=== PATIENT | male | born 1980 | race African-American/Black ===

== ENCOUNTER 2021-04-16 16:05 | Inpatient (IN) ==
[2021-04-16] MEDS ORDERED: NS 1000 ML 1,000 ML IV ONE (16:12)
[2021-04-16 16:15] VITALS: BMI 16.6
[2021-04-16] MEDS ORDERED: NS 1000 ML 1,000 ML ONE ×2 (16:19→17:54)
[2021-04-16 16:32] LABS: BASOPHILS # (AUTO) 0.1 X10^3/uL (0.0-0.1); BASOPHILS % (AUTO) 1.2 % (0.2-1.0); EOSINOPHILS # (AUTO) 0.2 x10^3/uL (0.0-0.2); EOSINOPHILS % (AUTO) 3.5 % (0.9-2.9); HEMOGLOBIN 8.9 g/dL (13.5-18.0); MEAN CORPUSCULAR HEMOGLOBIN 27.2 pg (27.0-34.0); MEAN CORPUSCULAR HGB CONC 33.1 g/dL (33.0-35.0); MEAN PLATELET VOLUME 7.3 fL (7.4-11.0); MONOCYTES # (AUTO) 0.2 x10^3/uL (0.3-0.8); MONOCYTES % (AUTO) 3.7 % (0.0-13.0); NEUTROPHILS # (AUTO) 2.7 x10^3/uL (2.2-4.8); NEUTROPHILS % (AUTO) 52.6 % (42.0-75.0); PLATELET COUNT 302 X10^3/uL (150.0-450.0); RED BLOOD COUNT 3.29 X10^6/uL (4.7-6.0); RED CELL DISTRIBUTION WIDTH 16.8 % (11.6-16.5)
--- NOTE | 2021-04-16 16:33 | RAD ---
HISTORYc/o passing out and abdominal pain. He states the abd pain is chronic. Pt states he has not had much to eat in the past 4 days due to pain from gastric ulcers. Relevant Clinical InformationSTUDYCHEST, 1 VIEWCOMPARISONNoneFINDINGSThe trachea is midline. The cardiac silhouette is unremarkable. The lungs are clear without focal infiltrate or effusion. The bony thorax is unremarkable.IMPRESSIONNo acute cardiopulmonary disease.Electronically signed by: Neha Barrera (Apr 16, 2021 16:31:01)
--- NOTE | 2021-04-16 16:42 | DR.GENAD ---
HPI Time Seen Time Seen by Provider: 04/16/21 16:30 Complaint/Symptoms Chief Complaint Doctors Comments: 40 y/o male, feeling bad for awhile. Has a h/o gastric ulcers, being followed by GI. Pt has been having upper abdominal pain, sharp, epigastric, fairly constant, does not radiate. Nothing makes it better, nothing makes it worse. Has had decreased PO intake x 4 days. Pt tried to walk to relative's house, became lightheaded and passed out. Denies any injury from falling. Has a headache. Denies neck pain, chest pain, dyspnea. Having pain with moving bowels, decreased stooling. Has not noticed the color of his stool. Source History Provided: Patient Mode of Arrival Mode of Arrival: EMS PMH PMH Past Medical History: Yes Past Medical History: PUD Past Surgical History: Yes Surgical History: Ortho Surgery Family History Family Medical History: Hypertension Social History Do you use any recreational Drugs:: No ROS Review of Systems Constitutional: Malaise, Weakness and Fatigue Eyes: No Symptoms Reported ENTM: No Symptoms Reported Respiratoy: No Symptoms Reported Cardiovascular: No Symptoms Reported Gastrointestinal/Abdominal: Abdominal Pain and Vomiting Genitourinary: No Symptoms Reported Neurological: Headache and Weakness Musculoskeletal: No Symptoms Reported Integumentary: No Symptoms Reported Hematologic/Lymphatic: No Symptoms Reported Endocrine: No Symptoms Reported Psychiatric: No Symptoms Reported All Other Systems: Reviewed and Negative PE Vital Signs Vitals: Temperature 98.4 F Pulse Rate 108 Respiratory Rate 18 Blood Pressure 100/78 O2 Sat by Pulse Oximetry 100 General Limitations: No Limitations General Appearance: Alert and In No Apparent Distress Head Head Exam: Normal Inspection, Atraumatic and Normocephalic Eyes Eye exam: Normal Appearance and PERRL ENT ENT Exam: Normal Exam and Mucous Membranes Moist Nose Exam: Normal Nose Exam Neck Neck Exam: Normal Inspection and Full ROM Chest Chest Inspection: Normal Inspection Respiratory Respiratory Exam: Normal Lung Sounds Bilat; negative Accessory Muscle Use and Respiratory Distress Respiratory Exam: Bilateral: Clear to Auscultation Cardiovascular Cardiovascular Exam: Regular Rate, Normal Rhythm, Tachycardia and Normal Heart Sounds Abdominal Exam Abdominal Exam: Normal Inspection, Normal Bowel Sounds, Soft and Tenderness (epigastric region) Extremities Extremities Exam: Normal Inspection and Full ROM; negative Tenderness and Edema Back Back Exam: Normal Inspection and Full ROM; negative Tenderness Neurologic Neurological Exam: Alert, Oriented X3 and CN II-XII Intact; negative Motor Sensory Deficit Psychiatric Psychiatric Exam: Normal Affect Skin Skin Exam: Warm and Dry MDM Differential Diagnosis Differential Diagnosis: gastritis, PUD, dehydration, renal injury, rhabdomyolisis COURSE Treatment Treatment: Pt with decreased PO intake x 4 days, had syncopal event while walking. Appears dehydrated, P up BP low. W/u initiated. Given IV fluids. Pt doing better, P & BP improving. Additional IV fluids given. Pt wants to try to eat. Will give IV protonix. Hgb 8.9, will send stool for blood. Deserves admission for more fluids. Discussed with Dr. Leonard, covering hospitalist, will admit. ROR Labs Reviewed Laboratory Results Reviewed?: Yes Result Diagrams: 04/16/21 16:18 04/16/21 16:18 Laboratory: WBC 5.0 X10^3/uL (3.6-10.0) 04/16/21 16:18 RBC 3.29 X10^6/uL (4.7-6.0) L 04/16/21 16:18 Hgb 8.9 g/dL (13.5-18.0) L 04/16/21 16:18 Hct 27.0 % (42.0-54.0) L 04/16/21 16:18 MCV 82.0 fL (80.0-100.0) 04/16/21 16:18 MCH 27.2 pg (27.0-34.0) 04/16/21 16:18 MCHC 33.1 g/dL (33.0-35.0) 04/16/21 16:18 RDW 16.8 % (11.6-16.5) H 04/16/21 16:18 Plt Count 302 X10^3/uL (150.0-450.0) 04/16/21 16:18 MPV 7.3 fL (7.4-11.0) L 04/16/21 16:18 Neut % (Auto) 52.6 % (42.0-75.0) 04/16/21 16:18 Lymph % (Auto) 39.0 % (21.0-51.0) 04/16/21 16:18 [place] % (Auto) 3.7 % (0.0-13.0) 04/16/21 16:18 Eos % (Auto) 3.5 % (0.9-2.9) H 04/16/21 16:18 Baso % (Auto) 1.2 % (0.2-1.0) H 04/16/21 16:18 Neut # (Auto) 2.7 x10^3/uL (2.2-4.8) 04/16/21 16:18 Lymph # (Auto) 2.0 X10^3/uL (1.3-2.9) 04/16/21 16:18 [place] # (Auto) 0.2 x10^3/uL (0.3-0.8) L 04/16/21 16:18 Eos # (Auto) 0.2 x10^3/uL (0.0-0.2) 04/16/21 16:18 Baso # (Auto) 0.1 X10^3/uL (0.0-0.1) 04/16/21 16:18 Absolute Nucleated RBC 0.0 /100WBC 04/16/21 16:18 Sodium 140 mmol/L (136-145) 04/16/21 16:18 Corrected Sodium 142 mmol/L (136-145) 04/16/21 16:18 Potassium 4.3 mmol/L (3.5-5.1) 04/16/21 16:18 Chloride 104 mmol/L (98-107) 04/16/21 16:18 Carbon Dioxide 25.5 mmol/L (21-32) 04/16/21 16:18 BUN 12 mg/dL (7-18) 04/16/21 16:18 Creatinine 0.85 mg/dL (0.70-1.30) 04/16/21 16:18 Est GFR (MDRD) Af Amer > 60 (>60) 04/16/21 16:18 Est GFR (MDRD) Non-Af > 60 (>60) 04/16/21 16:18 Glucose 169 mg/dL (65-99) H 04/16/21 16:18 Calcium 8.0 mg/dL (8.5-10.1) L 04/16/21 16:18 Corrected Calcium 8.8 mg/dL (8.5-10.1) 04/16/21 16:18 Total Bilirubin 0.20 mg/dL (0.2-1.0) 04/16/21 16:18 AST 14 Units/L (15-37) L 04/16/21 16:18 ALT 19 Units/L (12-78) 04/16/21 16:18 Alkaline Phosphatase 78 Units/L (46-116) 04/16/21 16:18 Creatine Kinase 99 Units/L (39-308) 04/16/21 16:18 CK-MB (CK-2) < 1.0 ng/mL (0-4.0) 04/16/21 16:18 CK/CKMB % Calc 1.0 % (<4) 04/16/21 16:18 Troponin I 0.02 ng/mL (0-1.5) 04/16/21 16:18 Total Protein 5.7 g/dL (6.4-8.2) L 04/16/21 16:18 Albumin 3.0 g/dL (3.4-5.0) L 04/16/21 16:18 Globulin 2.7 g/dL (2.5-4.5) 04/16/21 16:18 Albumin/Globulin Ratio 1.1 Ratio (1.1-2.1) 04/16/21 16:18 Lipase 75 Units/L (73-393) 04/16/21 16:18 SARS-CoV-2 (PCR) Negative (NEGATIVE) 04/16/21 16:14 Influenza Type A (PCR) Negative (NEGATIVE) 04/16/21 16:14 Influenza Type B (PCR) Negative (NEGATIVE) 04/16/21 16:14 RSV (PCR) Negative (NEGATIVE) 04/16/21 16:14 XRAY XRAY Interpreted by: Radiologist X-ray Results: CXR - clear. CT head - no acute abnormalities. Opioid Opioid Risk Tool Age (Jhony box if 16-45): Yes History of Preadolescent Sexual Abuse: No Total: 1 Total Score Risk Category: Low Risk Copyright: Damon VINCENT predicting aberrant behaviors Diagnosis Discharge Problem: Volume depletion, Peptic ulcer disease Syncope Qualifiers: Encounter type: initial encounter
--- NOTE | 2021-04-16 17:07 | CT ---
EXAM: HEAD CT WITHOUT INTRAVENOUS CONTRASTHISTORY: Headache status post traumatic injury. Syncope.TECHNIQUE: Spiral axial CT images are obtained through the brain without the administration of intravenous contrast. Additional sagittal and coronal reformatted images are reconstructed.DOSIMETRY: Total DLP 1121.5 mGycm; CTDI 67.4 mGyCOMPARISON: None available.FINDINGS:The centrum semiovale, basal ganglia, cerebellum, and brainstem are grossly unremarkable for a noncontrast CT scan.There is no acute intracranial hemorrhage, discernible acute infarction, mass lesion, midline shift, or hydrocephalus seen. No extra-axial mass or abnormal fluid collection is seen.There is a small left posterior parietal/occipital scalp hemorrhagic contusion/hematoma. The calvarium is intact. The partially imaged paranasal sinuses, middle ear cavities, and mastoid air cells are clear.IMPRESSION:1. No skull fracture or acute intracranial hemorrhage seen.2. No discernible acute infarction, mass lesions, midline shift, mass effect or hydrocephalus seen.Electronically signed by: Rebekah Burkett (Apr 16, 2021 17:04:16)
[2021-04-16 17:11] LABS: ALANINE AMINOTRANSFERASE 19 Units/L (12-78); ALKALINE PHOSPHATASE 78 Units/L (46-116); ASPARTATE AMINO TRANSFERASE 14 Units/L (15-37); BLOOD UREA NITROGEN 12 mg/dL (7-18); CARBON DIOXIDE 25.5 mmol/L (21-32); CHLORIDE 104 mmol/L (98-107); COR CA(FOR HYPOALB) 8.8 mg/dL (8.5-10.1); COR NA(FOR HYPERGLY) 142 mmol/L (136-145); CREATINE KINASE 99 Units/L (39-308); CREATINE KINASE MB < 1.0 ng/mL (0-4.0); CREATININE 0.85 mg/dL (0.70-1.30); LIPASE 75 Units/L (73-393); SODIUM 140 mmol/L (136-145); TOTAL PROTEIN 5.7 g/dL (6.4-8.2); TROPONIN I 0.02 ng/mL (0-1.5); eGFR NON BLACK RACES > 60 (>60)
[2021-04-16] MEDS ORDERED: PROTONIX INJ 40 MG VIAL IVP ONE (18:36)
[2021-04-16] MEDS ORDERED: PROTONIX INJ 40 MG VIAL ONE (18:49)
[2021-04-16 19:15] LABS: BILIRUBIN,URINE NEGATIVE (NEGATIVE); BLOOD/HEMOGLOBIN,URINE NEGATIVE (NEGATIVE); GLUCOSE, URINE NEGATIVE (NEGATIVE); KETONES,URINE NEGATIVE (NEGATIVE); LEUKOCYTE ESTERASE ,URINE NEGATIVE (NEGATIVE); NITRITES,URINE NEGATIVE (NEGATIVE); PROTEIN,URINE 1+ (NEGATIVE); UROBILINOGEN,URINE NORMAL (NORMAL)
[2021-04-16] MEDS ORDERED: LEVSIN/MAALOX/LIDOC VISC PO ONE (19:32)
[2021-04-16] MEDS ORDERED: LEVSIN/MAALOX/LIDOC VISC ONE (19:35)
[2021-04-16 19:47] LABS: APPEARANCE,URINE CLOUDY (CLEAR); COLOR,URINE YELLOW (YELLOW); RBC,URINE NONE SEEN /HPF (0-3)
[2021-04-16 19:48] LABS: AMORPHOUS SEDIMENT,UR 3+ /HPF (NEGATIVE); BACTERIA,URINE NEGATIVE /HPF (NEGATIVE); SQUAMOUS EPITHELIAL CELL,UR RARE /HPF (NEGATIVE)
[2021-04-17] MEDS: NS 1000 ML 1,000 ML IV SCH ×5 (00:09→21:30)
[2021-04-17] MEDS: CARAFATE ORAL SUSP PO SCH ×5 (00:09→21:29)
[2021-04-17 05:07] LABS: BASOPHILS % (AUTO) 0.7 % (0.2-1.0); EOSINOPHILS # (AUTO) 0.1 x10^3/uL (0.0-0.2); EOSINOPHILS % (AUTO) 1.7 % (0.9-2.9); HEMATOCRIT 20.3 % (42.0-54.0); LYMPHOCYTES # (AUTO) 1.7 X10^3/uL (1.3-2.9); LYMPHOCYTES % (AUTO) 26.6 % (21.0-51.0); MEAN CORPUSCULAR HEMOGLOBIN 27.3 pg (27.0-34.0); MEAN CORPUSCULAR HGB CONC 33.4 g/dL (33.0-35.0); MEAN CORPUSCULAR VOLUME 81.8 fL (80.0-100.0); MEAN PLATELET VOLUME 7.7 fL (7.4-11.0); MONOCYTES # (AUTO) 0.4 x10^3/uL (0.3-0.8); NEUTROPHILS # (AUTO) 4.1 x10^3/uL (2.2-4.8); PLATELET COUNT 238 X10^3/uL (150.0-450.0); RED BLOOD COUNT 2.48 X10^6/uL (4.7-6.0); RED CELL DISTRIBUTION WIDTH 17.1 % (11.6-16.5); WHITE BLOOD COUNT 6.3 X10^3/uL (3.6-10.0)
[2021-04-17 05:18] LABS: ALANINE AMINOTRANSFERASE 17 Units/L (12-78); ALBUMIN 2.9 g/dL (3.4-5.0); ALKALINE PHOSPHATASE 68 Units/L (46-116); ASPARTATE AMINO TRANSFERASE 12 Units/L (15-37); BLOOD UREA NITROGEN 16 mg/dL (7-18); CALCIUM 7.6 mg/dL (8.5-10.1); CARBON DIOXIDE 28.4 mmol/L (21-32); CHLORIDE 105 mmol/L (98-107); COR CA(FOR HYPOALB) 8.5 mg/dL (8.5-10.1); CREATININE 0.61 mg/dL (0.70-1.30); SODIUM 137 mmol/L (136-145); TOTAL PROTEIN 5.8 g/dL (6.4-8.2); eGFR NON BLACK RACES > 60 (>60)
[2021-04-17 05:33] LABS: HEMOGLOBIN 6.8 g/dL (13.5-18.0)
[2021-04-17] MEDS ORDERED: NS 500 ML IV 500 ML IV ONE (05:51)
[2021-04-17] MEDS: MILK OF MAGNESIA PO SCH ×2 (08:23→21:31)
[2021-04-17] MEDS: PROTONIX INJ 40 MG VIAL IVP SCH ×2 (08:50→21:30)
[2021-04-17] MEDS ORDERED: PROTONIX INJ 40 MG VIAL IVP SCH (09:00)
--- NOTE | 2021-04-17 09:17 | RAD ---
HISTORYABD PAIN, CONSTIPATIONSTUDYKUBCOMPARISONCT 12/25/2020FINDINGSIncreased small and large bowel air is seen and there is moderate right-sided constipation. No fecal impaction is seen. No suspicious calcifications are seen.IMPRESSIONModerate right-sided constipation. Increased small bowel and large bowel air may be due to mild ileus.Electronically signed by: Benedicto Mccollum (Apr 17, 2021 09:15:10)
[2021-04-17] MEDS: LEVSIN/MAALOX/LIDOC VISC PO PRN (10:48)
--- NOTE | 2021-04-17 11:25 | DR.H&P ---
H&P History & Physical for Day of: H&P Date: 04/17/21 Chief Complaint Chief Complaint: abdominal pain, poor oral intake, syncope Allergies Allergies Allergy/AdvReac Type Severity Reaction Status Date / Time No Known Drug Allergies Allergy Verified 11/20/20 11:47 History of Present Illness History of Present Illness: Mr Stein is a 40y/o male with a PMH of PUD, ga stritis and esophagitis who presented with worsening abdominal pain, vomiting and decreased oral intake. He also had a syncopal episode while he was at a family member's house. He states he has not been eating much for the past few days. He reports epigastric abdominal pain. He sees Dr Tee, saw him this Tuesday and is scheduled for a procedure next month. Patient reports taking PPI twice a day. He denies NSAID use or goody powder. Denies ETOH use. He denies noticing blood in stool. Denies diarrhea. He did have one episode of vomiting and it appeared to be coffee ground emesis. He feels better now. He was supposed to be NPO but tray was brought in prior to that order and patient did eat this morning. He states it worsened his pain slightly. He appears to be comfortable with no distress. He has not had a BM yet. He denies prev hx of blood transfusions. ER work up - Labs: Hgb 8.9 now 6.8 WBC 6.3 Plt 238 BUN/Cr: 16/0.6 Glucose 92 Trop (-) - CXR: no acute process - CT-head: normal Patient was started on IV fluids, IV pantoprazole and received GI cocktail. His Hgb did drop to 6.8 this AM. Denies hx of CAD. Last EGD 10/2020: duodenal bulb ulcer noted with mild gastritis and esophagitis. Plan: transfuse 2 units PRBCs, continue IV hydration. Change IV protonix to 40 mg BID. Add GI cocktail and carafate. Will switch to clear liquids. FOBT ordered. Get KUB. Monitor H/H after transfusion. Monitor AM labs. Past Medical History Past Medical History: Anemia and PUD Past Surgical History Surgical History: Ortho Surgery Family History Family Medical History: Hypertension Social History Does patient currently use any type of tobacco product: Yes Have you used tobacco products in the last 12 months: Yes Type of Tobacco Use: Cigarettes How many years tobacco product used: 10 Does any household member use tobacco: No Alcohol Use: None Drug Use: None Prescription drug monitoring program results: PDMP reviewed and no concerns identified Medications Home Medications: No Known Drug Allergies Allergy (Verified 11/20/20 11:47) CONTINUE taking the following medications lidocaine HCl [Lidocaine Viscous] 7.5 ml PO TID 04/16/21 [History] metoclopramide HCl 10 mg PO AC 04/16/21 [History] pantoprazole 40 mg PO DAILY 04/16/21 [History] sucralfate 10 ml PO QID 04/16/21 [History] Labs Result Diagrams: 04/17/21 03:55 04/17/21 03:55 Labs: Laboratory WBC 6.3 X10^3/uL (3.6-10.0) 04/17/21 03:55 RBC 2.48 X10^6/uL (4.7-6.0) L 04/17/21 03:55 Hgb 6.8 g/dL (13.5-18.0) L* D 04/17/21 03:55 Hct 20.3 % (42.0-54.0) L 04/17/21 03:55 MCV 81.8 fL (80.0-100.0) 04/17/21 03:55 MCH 27.3 pg (27.0-34.0) 04/17/21 03:55 MCHC 33.4 g/dL (33.0-35.0) 04/17/21 03:55 RDW 17.1 % (11.6-16.5) H 04/17/21 03:55 Plt Count 238 X10^3/uL (150.0-450.0) 04/17/21 03:55 MPV 7.7 fL (7.4-11.0) 04/17/21 03:55 Neut % (Auto) 65.0 % (42.0-75.0) 04/17/21 03:55 Lymph % (Auto) 26.6 % (21.0-51.0) 04/17/21 03:55 [place] % (Auto) 6.0 % (0.0-13.0) 04/17/21 03:55 Eos % (Auto) 1.7 % (0.9-2.9) 04/17/21 03:55 Baso % (Auto) 0.7 % (0.2-1.0) 04/17/21 03:55 Neut # (Auto) 4.1 x10^3/uL (2.2-4.8) 04/17/21 03:55 Lymph # (Auto) 1.7 X10^3/uL (1.3-2.9) 04/17/21 03:55 [place] # (Auto) 0.4 x10^3/uL (0.3-0.8) 04/17/21 03:55 Eos # (Auto) 0.1 x10^3/uL (0.0-0.2) 04/17/21 03:55 Baso # (Auto) 0.0 X10^3/uL (0.0-0.1) 04/17/21 03:55 Absolute Nucleated RBC 0.0 /100WBC 04/17/21 03:55 Sodium 137 mmol/L (136-145) 04/17/21 03:55 Corrected Sodium TNP 04/17/21 03:55 Potassium 4.6 mmol/L (3.5-5.1) 04/17/21 03:55 Chloride 105 mmol/L (98-107) 04/17/21 03:55 Carbon Dioxide 28.4 mmol/L (21-32) 04/17/21 03:55 BUN 16 mg/dL (7-18) 04/17/21 03:55 Creatinine 0.61 mg/dL (0.70-1.30) L 04/17/21 03:55 Est GFR (MDRD) Af Amer > 60 (>60) 04/17/21 03:55 Est GFR (MDRD) Non-Af > 60 (>60) 04/17/21 03:55 Glucose 92 mg/dL (65-99) 04/17/21 03:55 Calcium 7.6 mg/dL (8.5-10.1) L 04/17/21 03:55 Corrected Calcium 8.5 mg/dL (8.5-10.1) 04/17/21 03:55 Total Bilirubin 0.10 mg/dL (0.2-1.0) L 04/17/21 03:55 AST 12 Units/L (15-37) L 04/17/21 03:55 ALT 17 Units/L (12-78) 04/17/21 03:55 Alkaline Phosphatase 68 Units/L (46-116) 04/17/21 03:55 Creatine Kinase 99 Units/L (39-308) 04/16/21 16:18 CK-MB (CK-2) < 1.0 ng/mL (0-4.0) 04/16/21 16:18 CK/CKMB % Calc 1.0 % (<4) 04/16/21 16:18 Troponin I 0.02 ng/mL (0-1.5) 04/16/21 16:18 Total Protein 5.8 g/dL (6.4-8.2) L 04/17/21 03:55 Albumin 2.9 g/dL (3.4-5.0) L 04/17/21 03:55 Globulin 2.9 g/dL (2.5-4.5) 04/17/21 03:55 Albumin/Globulin Ratio 1.0 Ratio (1.1-2.1) L 04/17/21 03:55 Lipase 75 Units/L (73-393) 04/16/21 16:18 Specimen Type Clean catch urine 04/16/21 18:50 Urine Color Yellow (YELLOW) 04/16/21 18:50 Urine Appearance Cloudy (CLEAR) 04/16/21 18:50 Urine pH 7.0 (5.0 - 8.0) 04/16/21 18:50 Ur Specific [place] 1.015 (1.000-1.030) 04/16/21 18:50 Urine Protein 1+ (NEGATIVE) 04/16/21 18:50 Urine Glucose (UA) Negative (NEGATIVE) 04/16/21 18:50 Urine Ketones Negative (NEGATIVE) 04/16/21 18:50 Urine Occult Blood Negative (NEGATIVE) 04/16/21 18:50 Urine Nitrite Negative (NEGATIVE) 04/16/21 18:50 Urine Bilirubin Negative (NEGATIVE) 04/16/21 18:50 Urine Urobilinogen Normal (NORMAL) 04/16/21 18:50 Ur Leukocyte Esterase Negative (NEGATIVE) 04/16/21 18:50 Urine RBC None seen /HPF (0-3) 04/16/21 18:50 Urine WBC None seen /HPF (0-5) 04/16/21 18:50 Ur Squamous Epith Cells Rare /HPF (NEGATIVE) 04/16/21 18:50 Amorphous Sediment 3+ /HPF (NEGATIVE) 04/16/21 18:50 Urine Bacteria Negative /HPF (NEGATIVE) 04/16/21 18:50 Ur Culture Indicated? No/not indicated 04/16/21 18:50 SARS-CoV-2 (PCR) Negative (NEGATIVE) 04/16/21 16:14 Influenza Type A (PCR) Negative (NEGATIVE) 04/16/21 16:14 Influenza Type B (PCR) Negative (NEGATIVE) 04/16/21 16:14 RSV (PCR) Negative (NEGATIVE) 04/16/21 16:14 Blood Type O POSITIVE 04/17/21 06:00 Antibody Screen Negative 04/17/21 06:00 Crossmatch See Detail 04/17/21 06:00 Review of Systems Constitutional: No Symptoms Reported Eyes: No Symptoms Reported ENT: No Symptoms Reported Respiratory: No Symptoms Reported Cardiovascular: No Symptoms Reported Gastrointestinal: Vomiting, Abdominal Pain and Constipation Genitourinary: No Symptoms Reported Musculoskeletal: No Symptoms Reported Skin: No Symptoms Reported Physical Exam Vital Signs: Temperature 98.4 F Pulse Rate [Apical] 91 Pulse Rate 108 Respiratory Rate 20 Blood Pressure [Right Arm] 100/59 Blood Pressure 100/78 O2 Sat by Pulse Oximetry 99 Oriented: Normal Eyes: Normal Ear: Normal Nose: Normal Throat: Normal Respiratory: Clear Throughout Cardiovascular: Normal Auscultation: Bowel Sounds: Decreased Tenderness: Epigastric and Mild; negative Rebound and Guarding Skin: Normal Musculoskeletal: Normal Psychiatric: Normal Mood Description: Calm and Appropriate Affect: Normal Speech Pattern: Clear and Appropriate Assessment/Plan (1) Anemia: Qualifiers: Anemia type: other cause Other causes of anemia: other cause, not classified Qualified Code(s): D64.89 - Other specified anemias Status: Acute (2) Peptic ulcer disease: Status: Acute (3) Dehydration: Status: Acute (4) Esophagitis: Status: Acute (5) Gastritis: Qualifiers: Chronicity: chronic Gastritis bleeding: presence of bleeding unspecified Gastritis type: unspecified gastritis Qualified Code(s): K29.50 - Unspecified chronic gastritis without bleeding Status: Acute (6) Syncope: Qualifiers: Syncope type: unspecified Qualified Code(s): R55 - Syncope and collapse Status: Acute Review H&P Reviewed: Yes Patient was examined?: Yes
[2021-04-17] MEDS ORDERED: NS 250 ML IV 250 ML IV ONE (14:14)
[2021-04-17 18:54] LABS: HEMATOCRIT 27.6 % (42.0-54.0); HEMOGLOBIN 9.2 g/dL (13.5-18.0)
[2021-04-17] MEDS: COLACE CAP 100 MG PO SCH (21:31)
[2021-04-18] MEDS: NS 1000 ML 1,000 ML IV SCH ×6 (02:47→20:42)
[2021-04-18 06:52] LABS: BASOPHILS % (AUTO) 0.8 % (0.2-1.0); EOSINOPHILS # (AUTO) 0.1 x10^3/uL (0.0-0.2); EOSINOPHILS % (AUTO) 1.8 % (0.9-2.9); HEMOGLOBIN 8.5 g/dL (13.5-18.0); LYMPHOCYTES # (AUTO) 1.8 X10^3/uL (1.3-2.9); LYMPHOCYTES % (AUTO) 28.4 % (21.0-51.0); MEAN CORPUSCULAR HEMOGLOBIN 26.8 pg (27.0-34.0); MEAN CORPUSCULAR HGB CONC 33.9 g/dL (33.0-35.0); MEAN CORPUSCULAR VOLUME 79.3 fL (80.0-100.0); MEAN PLATELET VOLUME 7.5 fL (7.4-11.0); MONOCYTES # (AUTO) 0.4 x10^3/uL (0.3-0.8); MONOCYTES % (AUTO) 5.7 % (0.0-13.0); NEUTROPHILS # (AUTO) 3.9 x10^3/uL (2.2-4.8); NEUTROPHILS % (AUTO) 63.3 % (42.0-75.0); PLATELET COUNT 195 X10^3/uL (150.0-450.0); RED BLOOD COUNT 3.15 X10^6/uL (4.7-6.0); RED CELL DISTRIBUTION WIDTH 16.2 % (11.6-16.5); WHITE BLOOD COUNT 6.2 X10^3/uL (3.6-10.0)
[2021-04-18 06:53] LABS: ALANINE AMINOTRANSFERASE 22 Units/L (12-78); ALBUMIN 2.5 g/dL (3.4-5.0); ALKALINE PHOSPHATASE 66 Units/L (46-116); ASPARTATE AMINO TRANSFERASE 17 Units/L (15-37); BLOOD UREA NITROGEN 4 mg/dL (7-18); CALCIUM 7.6 mg/dL (8.5-10.1); CARBON DIOXIDE 27.3 mmol/L (21-32); CHLORIDE 104 mmol/L (98-107); COR CA(FOR HYPOALB) 8.8 mg/dL (8.5-10.1); CREATININE 0.63 mg/dL (0.70-1.30); SODIUM 134 mmol/L (136-145); TOTAL PROTEIN 5.2 g/dL (6.4-8.2); eGFR NON BLACK RACES > 60 (>60)
[2021-04-18] MEDS: PROTONIX INJ 40 MG VIAL IVP SCH ×2 (08:18→20:42)
[2021-04-18] MEDS: CARAFATE ORAL SUSP PO SCH ×4 (08:18→20:41)
[2021-04-18] MEDS: MILK OF MAGNESIA PO SCH ×2 (08:22→20:42)
[2021-04-18] MEDS: PEPCID 20 MG IV PREMIX* 20 MG/50 ML BAG IV SCH ×2 (11:42→20:42)
[2021-04-18 11:52] LABS: HEMATOCRIT 27.1 % (42.0-54.0); HEMOGLOBIN 9.1 g/dL (13.5-18.0)
--- NOTE | 2021-04-18 15:10 | PCM.PROG ---
Progress Note - Progress Note for Day of Date of Exam: 04/18/21 - Subjective Subjective: IS A 40 YEAR OLD B/M WHO IS UNDER THE CARE OF . HE WAS ADMITTED ON 04/16 FOR TREATMENT OF ANEMIA. HE HAS A PMH OF PUD, GASTRITIS, AND ESOPHAGITIS. HE INITIALLY PRESENTED WITH ABDOMINAL PAIN, VOMITING, AND DECREASED ORAL INTAKE. STAFF REPORTS THAT HE HAS HAD ONE EPISODE OF VOMITING SINCE ADMISSION. IT APPEARED TO BE COFFEE GROUND EMESIS. HE HAS RECEIVED TWO UNITS OF PRBC SINCE ADMISSION. TODAY, HE IS ALERT AND ORIENTED, LYING IN BED ON MORNING ROUNDS. HE REPORTS WEAKNESS, BUT DENIES ABDOMINAL PAIN OR OTHER COMPLAINTS AT THIS TIME. HE HAS TOLERATED CLEAR LIQUIDS WELL AND IS REQUESTING SOLID FOODS. ON EXAMINATION, HEART IS REGULAR IN RATE AND RHYTHM. BILATERAL LUNGS ARE CLEAR TO AUSCULTATION. ABDOMEN IS FLAT, SOFT, AND NON-TENDER WITH HYPOACTIVE BOWEL SOUNDS NOTED IN ALL QUADRANTS. HIS VITALS THIS MORNING ARE: 98.8-83-18-100%-108/79. LABS WERE OBTAINED. ABNORMAL LAB VALUES INCLUDE THE FOLLOWING: RBC 3.15, HGB 8.5, HCT 25.0, SODIUM 134, BUN 4, CREATININE 0.63, TOTA L BILI 0.10, TOTAL PROTEIN 5.2, ALBUMIN 2.5. HE IS CURRENTLY RECEIVING NS AT 125 ML/HR, PROTONIX 40MG IV BID, GI COCKTAIL 30ML PO Q4H PRN, COLACE 200MG PO HS, PEPCID 20MG IV Q12H, MILK OF MAGNESIA 30ML PO BID, AND CARAFATE 1G PO QID. WE WILL CONTINUE WITH CURRENT PLAN OF CARE TODAY. WE WILL MONITOR H&H. IF HGB FALLS BELOW 7.5, WE WILL TRANSFUSE TWO ADDITIONAL UNITS OF PRBC. OTHERWISE, WE PLAN TO FOLLOW UP WITH AM LABS AND CONTINUE TO MONITOR. TIME SPENT ON CLINICAL ASSESSMENT, REVIEWING LABS AND IMAGING, DECISION MAKING, AND DOCUMENTATION GREATER THAN 45 MINUTES. - Past Medical Family Social History Past Med/Fam/Surg Hx: No changes since H&P Allergies: Allergies No Known Drug Allergies Allergy (Verified 11/20/20 11:47) - Review of Systems ROS: No change since H&P - Vital Signs and I&O's Vital Signs: Temperature 98.1 F Pulse Rate [Apical] 79 Pulse Rate 108 Respiratory Rate 20 Blood Pressure [Right Arm] 123/77 Blood Pressure 100/78 O2 Sat by Pulse Oximetry 100 Intake and Output: Intake & Output 04/16/21 04/17/21 04/18/21 04/19/21 11:59 11:59 11:59 11:59 Intake Total 1660 / 1660 3279 / 3279 Balance 1660 / 1660 3279 / 3279 - Physical Exam Oriented: Normal Eyes: Normal Ear: Normal Nose: Normal Throat: Normal Respiratory: Generalized, Diminished Cardiovascular: Normal Auscultation: Bowel Sounds: Decreased Palpation: Normal Tenderness: Normal. negative: Rebound, Guarding Skin: Normal Musculoskeletal: Normal Psychiatric: Normal Mood Description: Calm, Appropriate Affect: Normal Speech Pattern: Clear, Appropriate - Laboratory and Diagnostics Result Diagrams: 04/18/21 11:38 04/18/21 06:18 Labs: Laboratory WBC 6.2 X10^3/uL (3.6-10.0) 04/18/21 06:18 RBC 3.15 X10^6/uL (4.7-6.0) L 04/18/21 06:18 Hgb 9.1 g/dL (13.5-18.0) L 04/18/21 11:38 Hct 27.1 % (42.0-54.0) L 04/18/21 11:38 MCV 79.3 fL (80.0-100.0) L 04/18/21 06:18 MCH 26.8 pg (27.0-34.0) L 04/18/21 06:18 MCHC 33.9 g/dL (33.0-35.0) 04/18/21 06:18 RDW 16.2 % (11.6-16.5) 04/18/21 06:18 Plt Count 195 X10^3/uL (150.0-450.0) 04/18/21 06:18 MPV 7.5 fL (7.4-11.0) 04/18/21 06:18 Neut % (Auto) 63.3 % (42.0-75.0) 04/18/21 06:18 Lymph % (Auto) 28.4 % (21.0-51.0) 04/18/21 06:18 [place] % (Auto) 5.7 % (0.0-13.0) 04/18/21 06:18 Eos % (Auto) 1.8 % (0.9-2.9) 04/18/21 06:18 Baso % (Auto) 0.8 % (0.2-1.0) 04/18/21 06:18 Neut # (Auto) 3.9 x10^3/uL (2.2-4.8) 04/18/21 06:18 Lymph # (Auto) 1.8 X10^3/uL (1.3-2.9) 04/18/21 06:18 [place] # (Auto) 0.4 x10^3/uL (0.3-0.8) 04/18/21 06:18 Eos # (Auto) 0.1 x10^3/uL (0.0-0.2) 04/18/21 06:18 Baso # (Auto) 0.0 X10^3/uL (0.0-0.1) 04/18/21 06:18 Absolute Nucleated RBC 0.0 /100WBC 04/18/21 06:18 Sodium 134 mmol/L (136-145) L 04/18/21 06:18 Corrected Sodium TNP 04/18/21 06:18 Potassium 4.1 mmol/L (3.5-5.1) 04/18/21 06:18 Chloride 104 mmol/L (98-107) 04/18/21 06:18 Carbon Dioxide 27.3 mmol/L (21-32) 04/18/21 06:18 BUN 4 mg/dL (7-18) L 04/18/21 06:18 Creatinine 0.63 mg/dL (0.70-1.30) L 04/18/21 06:18 Est GFR (MDRD) Af Amer > 60 (>60) 04/18/21 06:18 Est GFR (MDRD) Non-Af > 60 (>60) 04/18/21 06:18 Glucose 96 mg/dL (65-99) 04/18/21 06:18 Calcium 7.6 mg/dL (8.5-10.1) L 04/18/21 06:18 Corrected Calcium 8.8 mg/dL (8.5-10.1) 04/18/21 06:18 Total Bilirubin 0.10 mg/dL (0.2-1.0) L 04/18/21 06:18 AST 17 Units/L (15-37) 04/18/21 06:18 ALT 22 Units/L (12-78) 04/18/21 06:18 Alkaline Phosphatase 66 Units/L (46-116) 04/18/21 06:18 Creatine Kinase 99 Units/L (39-308) 04/16/21 16:18 CK-MB (CK-2) < 1.0 ng/mL (0-4.0) 04/16/21 16:18 CK/CKMB % Calc 1.0 % (<4) 04/16/21 16:18 Troponin I 0.02 ng/mL (0-1.5) 04/16/21 16:18 Total Protein 5.2 g/dL (6.4-8.2) L 04/18/21 06:18 Albumin 2.5 g/dL (3.4-5.0) L 04/18/21 06:18 Globulin 2.7 g/dL (2.5-4.5) 04/18/21 06:18 Albumin/Globulin Ratio 0.9 Ratio (1.1-2.1) L 04/18/21 06:18 Lipase 75 Units/L (73-393) 04/16/21 16:18 Specimen Type Clean catch urine 04/16/21 18:50 Urine Color Yellow (YELLOW) 04/16/21 18:50 Urine Appearance Cloudy (CLEAR) 04/16/21 18:50 Urine pH 7.0 (5.0 - 8.0) 04/16/21 18:50 Ur Specific [place] 1.015 (1.000-1.030) 04/16/21 18:50 Urine Protein 1+ (NEGATIVE) 04/16/21 18:50 Urine Glucose (UA) Negative (NEGATIVE) 04/16/21 18:50 Urine Ketones Negative (NEGATIVE) 04/16/21 18:50 Urine Occult Blood Negative (NEGATIVE) 04/16/21 18:50 Urine Nitrite Negative (NEGATIVE) 04/16/21 18:50 Urine Bilirubin Negative (NEGATIVE) 04/16/21 18:50 Urine Urobilinogen Normal (NORMAL) 04/16/21 18:50 Ur Leukocyte Esterase Negative (NEGATIVE) 04/16/21 18:50 Urine RBC None seen /HPF (0-3) 04/16/21 18:50 Urine WBC None seen /HPF (0-5) 04/16/21 18:50 Ur Squamous Epith Cells Rare /HPF (NEGATIVE) 04/16/21 18:50 Amorphous Sediment 3+ /HPF (NEGATIVE) 04/16/21 18:50 Urine Bacteria Negative /HPF (NEGATIVE) 04/16/21 18:50 Ur Culture Indicated? No/not indicated 04/16/21 18:50 Stool Description 25g bloody hard 04/17/21 12:30 Stl Occult Blood (IFOB) Positive (NEGATIVE) A 04/17/21 12:30 SARS-CoV-2 (PCR) Negative (NEGATIVE) 04/16/21 16:14 Influenza Type A (PCR) Negative (NEGATIVE) 04/16/21 16:14 Influenza Type B (PCR) Negative (NEGATIVE) 04/16/21 16:14 RSV (PCR) Negative (NEGATIVE) 04/16/21 16:14 Blood Type O POSITIVE 04/17/21 06:00 Antibody Screen Negative 04/17/21 06:00 Crossmatch See Detail 04/17/21 06:00 - Plan (1) Anemia Status: Acute Qualifiers: Anemia type: iron deficiency Iron deficiency anemia type: chronic blood loss Qualified Code(s): D50.0 - Iron deficiency anemia secondary to blood loss (chronic) (2) Volume depletion Status: Acute (3) Peptic ulcer disease Status: Chronic
[2021-04-18 18:03] LABS: HEMATOCRIT 26.9 % (42.0-54.0); HEMOGLOBIN 9.2 g/dL (13.5-18.0)
[2021-04-18] MEDS: COLACE CAP 100 MG PO SCH (20:42)
[2021-04-19 00:56] LABS: HEMATOCRIT 23.1 % (42.0-54.0); HEMOGLOBIN 7.9 g/dL (13.5-18.0)
[2021-04-19] MEDS: NS 1000 ML 1,000 ML IV SCH ×3 (04:14→20:15)
[2021-04-19 06:28] LABS: BASOPHILS # (AUTO) 0.1 X10^3/uL (0.0-0.1); BASOPHILS % (AUTO) 1.3 % (0.2-1.0); EOSINOPHILS # (AUTO) 0.1 x10^3/uL (0.0-0.2); EOSINOPHILS % (AUTO) 2.3 % (0.9-2.9); HEMATOCRIT 24.6 % (42.0-54.0); HEMOGLOBIN 8.3 g/dL (13.5-18.0); LYMPHOCYTES # (AUTO) 1.5 X10^3/uL (1.3-2.9); LYMPHOCYTES % (AUTO) 24.7 % (21.0-51.0); MEAN CORPUSCULAR HEMOGLOBIN 27.3 pg (27.0-34.0); MEAN CORPUSCULAR HGB CONC 33.9 g/dL (33.0-35.0); MEAN CORPUSCULAR VOLUME 80.7 fL (80.0-100.0); MEAN PLATELET VOLUME 7.5 fL (7.4-11.0); MONOCYTES # (AUTO) 0.3 x10^3/uL (0.3-0.8); MONOCYTES % (AUTO) 4.7 % (0.0-13.0); NEUTROPHILS # (AUTO) 4.1 x10^3/uL (2.2-4.8); PLATELET COUNT 186 X10^3/uL (150.0-450.0); RED BLOOD COUNT 3.05 X10^6/uL (4.7-6.0); RED CELL DISTRIBUTION WIDTH 16.3 % (11.6-16.5); WHITE BLOOD COUNT 6.1 X10^3/uL (3.6-10.0)
[2021-04-19 06:36] LABS: ALANINE AMINOTRANSFERASE 31 Units/L (12-78); ALBUMIN 2.4 g/dL (3.4-5.0); ALKALINE PHOSPHATASE 66 Units/L (46-116); ASPARTATE AMINO TRANSFERASE 20 Units/L (15-37); BLOOD UREA NITROGEN 1 mg/dL (7-18); CALCIUM 7.5 mg/dL (8.5-10.1); CARBON DIOXIDE 25.9 mmol/L (21-32); CHLORIDE 105 mmol/L (98-107); COR CA(FOR HYPOALB) 8.8 mg/dL (8.5-10.1); CREATININE 0.71 mg/dL (0.70-1.30); SODIUM 136 mmol/L (136-145); eGFR NON BLACK RACES > 60 (>60)
[2021-04-19] MEDS: MILK OF MAGNESIA PO SCH ×2 (08:47→20:15)
[2021-04-19] MEDS: PEPCID 20 MG IV PREMIX* 20 MG/50 ML BAG IV SCH ×2 (08:47→20:15)
[2021-04-19] MEDS: PROTONIX INJ 40 MG VIAL IVP SCH ×2 (08:47→20:15)
[2021-04-19] MEDS: CARAFATE ORAL SUSP PO SCH ×4 (11:58→20:15)
--- NOTE | 2021-04-19 15:35 | PCM.PROG ---
Progress Note - Progress Note for Day of Date of Exam: 04/19/21 - Subjective Subjective: IS A 40 YEAR OLD B/M WHO IS UNDER THE CARE OF . HE WAS ADMITTED ON 04/16 FOR TREATMENT OF ANEMIA. HE HAS A PMH OF PUD, GASTRITIS, AND ESOPHAGITIS. HE INITIALLY PRESENTED WITH ABDOMINAL PAIN, VOMITING, AND DECREASED ORAL INTAKE. STAFF REPORTS THAT HE HAS HAD ONE EPISODE OF VOMITING SINCE ADMISSION. IT APPEARED TO BE COFFEE GROUND EMESIS. HE HAS RECEIVED TWO UNITS OF PRBC SINCE ADMISSION. TODAY, HE IS ALERT AND ORIENTED, LYING IN BED ON MORNING ROUNDS. HE REPORTS MILD LOWER ABDOMINAL PAIN, BUT IMPROVED SINCE ADMISSION. HE HAS TOLERATED FULL LIQUIDS DIET WELL. HE REPORTS A BOWEL MOVEMENT YESTERDAY AND SAYS THAT IT CONTINUED TO BE DARK AND TARRY. ON EXAMINATION, HEART IS REGULAR IN RATE AND RHYTHM. BILATERAL LUNGS ARE CLEAR TO AUSCULTATION. ABDOMEN IS FLAT, SOFT, AND NON-TENDER WITH HYPOACTIVE BOWEL SOUNDS NOTED IN ALL QUADRANTS. HIS VITALS THIS MORNING ARE: 98.1-79-20-100%-142/91. LABS WERE OBTAINED. ABNORMAL LAB VALUES INCLUDE THE FOLLOWING: RBC 3.05, HGB 8.3, HCT 24.6, BUN 1, CALCIUM 7.5, TOTAL PROTEIN 5.0, ALBUMIN 2.4. HE IS CURRENTLY RECEIVING NS AT 125 ML/HR, PROTONIX 40MG IV BID, GI COCKTAIL 30ML PO Q4H PRN, COLACE 200MG PO HS, PEPCID 20MG IV Q12H, MILK OF MAGNESIA 30ML PO BID, AND CARAFATE 1G PO QID. WE WILL CONTINUE WITH CURRENT PLAN OF CARE TODAY. WE WILL MONITOR H&H. IF HGB FALLS BELOW 7.5, WE WILL TRANSFUSE TWO ADDITIONAL UNITS OF PRBC. PATIENT AND FAMILY HAVE REQUESTED GI CONSULT. THEY DO NOT WISH TO SEE ANY LONGER. WE WILL CONSULT WITH , GENERAL SURGEON. OTHERWISE, WE PLAN TO FOLLOW UP WITH AM LABS AND CONTINUE TO MONITOR. TIME SPENT ON CLINICAL ASSESSMENT, REVIEWING LABS AND IMAGING, DECISION MAKING, AND DOCUMENTATION GREATER THAN 45 MINUTES. - Past Medical Family Social History Past Med/Fam/Surg Hx: No changes since H&P Allergies: Allergies No Known Drug Allergies Allergy (Verified 11/20/20 11:47) - Review of Systems ROS: No change since H&P - Vital Signs and I&O's Vital Signs: Temperature 98.2 F Pulse Rate [Apical] 79 Pulse Rate 108 Respiratory Rate 20 Blood Pressure [Right Arm] 142/91 Blood Pressure 100/78 O2 Sat by Pulse Oximetry 100 Intake and Output: Intake & Output 04/17/21 04/18/21 04/19/21 04/20/21 11:59 11:59 11:59 11:59 Intake Total 1660 / 1660 3279 / 3279 4180 / 4180 Balance 1660 / 1660 3279 / 3279 4180 / 4180 - Physical Exam Oriented: Normal Eyes: Normal Ear: Normal Nose: Normal Throat: Normal Respiratory: Generalized, Diminished Cardiovascular: Normal Auscultation: Bowel Sounds: Decreased Tenderness: Normal. negative: Rebound, Guarding Skin: Normal Musculoskeletal: Normal Psychiatric: Normal Mood Description: Calm, Appropriate Affect: Normal Speech Pattern: Clear, Appropriate - Laboratory and Diagnostics Result Diagrams: 04/19/21 05:53 04/19/21 05:53 Labs: Laboratory WBC 6.1 X10^3/uL (3.6-10.0) 04/19/21 05:53 RBC 3.05 X10^6/uL (4.7-6.0) L 04/19/21 05:53 Hgb 8.3 g/dL (13.5-18.0) L 04/19/21 05:53 Hct 24.6 % (42.0-54.0) L 04/19/21 05:53 MCV 80.7 fL (80.0-100.0) 04/19/21 05:53 MCH 27.3 pg (27.0-34.0) 04/19/21 05:53 MCHC 33.9 g/dL (33.0-35.0) 04/19/21 05:53 RDW 16.3 % (11.6-16.5) 04/19/21 05:53 Plt Count 186 X10^3/uL (150.0-450.0) 04/19/21 05:53 MPV 7.5 fL (7.4-11.0) 04/19/21 05:53 Neut % (Auto) 67.0 % (42.0-75.0) 04/19/21 05:53 Lymph % (Auto) 24.7 % (21.0-51.0) 04/19/21 05:53 [place] % (Auto) 4.7 % (0.0-13.0) 04/19/21 05:53 Eos % (Auto) 2.3 % (0.9-2.9) 04/19/21 05:53 Baso % (Auto) 1.3 % (0.2-1.0) H 04/19/21 05:53 Neut # (Auto) 4.1 x10^3/uL (2.2-4.8) 04/19/21 05:53 Lymph # (Auto) 1.5 X10^3/uL (1.3-2.9) 04/19/21 05:53 [place] # (Auto) 0.3 x10^3/uL (0.3-0.8) 04/19/21 05:53 Eos # (Auto) 0.1 x10^3/uL (0.0-0.2) 04/19/21 05:53 Baso # (Auto) 0.1 X10^3/uL (0.0-0.1) 04/19/21 05:53 Absolute Nucleated RBC 0.0 /100WBC 04/19/21 05:53 Sodium 136 mmol/L (136-145) 04/19/21 05:53 Corrected Sodium TNP 04/19/21 05:53 Potassium 3.9 mmol/L (3.5-5.1) 04/19/21 05:53 Chloride 105 mmol/L (98-107) 04/19/21 05:53 Carbon Dioxide 25.9 mmol/L (21-32) 04/19/21 05:53 BUN 1 mg/dL (7-18) L 04/19/21 05:53 Creatinine 0.71 mg/dL (0.70-1.30) 04/19/21 05:53 Est GFR (MDRD) Af Amer > 60 (>60) 04/19/21 05:53 Est GFR (MDRD) Non-Af > 60 (>60) 04/19/21 05:53 Glucose 92 mg/dL (65-99) 04/19/21 05:53 Calcium 7.5 mg/dL (8.5-10.1) L 04/19/21 05:53 Corrected Calcium 8.8 mg/dL (8.5-10.1) 04/19/21 05:53 Total Bilirubin 0.20 mg/dL (0.2-1.0) 04/19/21 05:53 AST 20 Units/L (15-37) 04/19/21 05:53 ALT 31 Units/L (12-78) 04/19/21 05:53 Alkaline Phosphatase 66 Units/L (46-116) 04/19/21 05:53 Creatine Kinase 99 Units/L (39-308) 04/16/21 16:18 CK-MB (CK-2) < 1.0 ng/mL (0-4.0) 04/16/21 16:18 CK/CKMB % Calc 1.0 % (<4) 04/16/21 16:18 Troponin I 0.02 ng/mL (0-1.5) 04/16/21 16:18 Total Protein 5.0 g/dL (6.4-8.2) L 04/19/21 05:53 Albumin 2.4 g/dL (3.4-5.0) L 04/19/21 05:53 Globulin 2.6 g/dL (2.5-4.5) 04/19/21 05:53 Albumin/Globulin Ratio 0.9 Ratio (1.1-2.1) L 04/19/21 05:53 Lipase 75 Units/L (73-393) 04/16/21 16:18 Specimen Type Clean catch urine 04/16/21 18:50 Urine Color Yellow (YELLOW) 04/16/21 18:50 Urine Appearance Cloudy (CLEAR) 04/16/21 18:50 Urine pH 7.0 (5.0 - 8.0) 04/16/21 18:50 Ur Specific [place] 1.015 (1.000-1.030) 04/16/21 18:50 Urine Protein 1+ (NEGATIVE) 04/16/21 18:50 Urine Glucose (UA) Negative (NEGATIVE) 04/16/21 18:50 Urine Ketones Negative (NEGATIVE) 04/16/21 18:50 Urine Occult Blood Negative (NEGATIVE) 04/16/21 18:50 Urine Nitrite Negative (NEGATIVE) 04/16/21 18:50 Urine Bilirubin Negative (NEGATIVE) 04/16/21 18:50 Urine Urobilinogen Normal (NORMAL) 04/16/21 18:50 Ur Leukocyte Esterase Negative (NEGATIVE) 04/16/21 18:50 Urine RBC None seen /HPF (0-3) 04/16/21 18:50 Urine WBC None seen /HPF (0-5) 04/16/21 18:50 Ur Squamous Epith Cells Rare /HPF (NEGATIVE) 04/16/21 18:50 Amorphous Sediment 3+ /HPF (NEGATIVE) 04/16/21 18:50 Urine Bacteria Negative /HPF (NEGATIVE) 04/16/21 18:50 Ur Culture Indicated? No/not indicated 04/16/21 18:50 Stool Description 25g bloody hard 04/17/21 12:30 Stl Occult Blood (IFOB) Positive (NEGATIVE) A 04/17/21 12:30 SARS-CoV-2 (PCR) Negative (NEGATIVE) 04/16/21 16:14 Influenza Type A (PCR) Negative (NEGATIVE) 04/16/21 16:14 Influenza Type B (PCR) Negative (NEGATIVE) 04/16/21 16:14 RSV (PCR) Negative (NEGATIVE) 04/16/21 16:14 Blood Type O POSITIVE 04/17/21 06:00 Antibody Screen Negative 04/17/21 06:00 Crossmatch See Detail 04/17/21 06:00 - Plan (1) Anemia Status: Acute Qualifiers: Anemia type: iron deficiency Iron deficiency anemia type: chronic blood loss Qualified Code(s): D50.0 - Iron deficiency anemia secondary to blood loss (chronic) (2) Volume depletion Status: Acute (3) Peptic ulcer disease Status: Chronic
[2021-04-19] MEDS: COLACE CAP 100 MG PO SCH (20:15)
[2021-04-20] MEDS: NS 1000 ML 1,000 ML IV SCH ×4 (05:02→21:55)
[2021-04-20 05:15] LABS: BASOPHILS # (AUTO) 0.1 X10^3/uL (0.0-0.1); BASOPHILS % (AUTO) 1.2 % (0.2-1.0); EOSINOPHILS # (AUTO) 0.2 x10^3/uL (0.0-0.2); EOSINOPHILS % (AUTO) 2.4 % (0.9-2.9); HEMATOCRIT 23.8 % (42.0-54.0); HEMOGLOBIN 7.9 g/dL (13.5-18.0); LYMPHOCYTES # (AUTO) 1.6 X10^3/uL (1.3-2.9); LYMPHOCYTES % (AUTO) 24.2 % (21.0-51.0); MEAN CORPUSCULAR HGB CONC 33.3 g/dL (33.0-35.0); MEAN CORPUSCULAR VOLUME 81.1 fL (80.0-100.0); MEAN PLATELET VOLUME 7.9 fL (7.4-11.0); MONOCYTES # (AUTO) 0.3 x10^3/uL (0.3-0.8); NEUTROPHILS # (AUTO) 4.4 x10^3/uL (2.2-4.8); NEUTROPHILS % (AUTO) 67.2 % (42.0-75.0); PLATELET COUNT 213 X10^3/uL (150.0-450.0); RED BLOOD COUNT 2.94 X10^6/uL (4.7-6.0); RED CELL DISTRIBUTION WIDTH 16.2 % (11.6-16.5); WHITE BLOOD COUNT 6.5 X10^3/uL (3.6-10.0)
[2021-04-20 05:24] LABS: ALANINE AMINOTRANSFERASE 35 Units/L (12-78); ALBUMIN 2.4 g/dL (3.4-5.0); ALKALINE PHOSPHATASE 68 Units/L (46-116); ASPARTATE AMINO TRANSFERASE 21 Units/L (15-37); BLOOD UREA NITROGEN 1 mg/dL (7-18); CALCIUM 7.6 mg/dL (8.5-10.1); CARBON DIOXIDE 26.2 mmol/L (21-32); CHLORIDE 106 mmol/L (98-107); COR CA(FOR HYPOALB) 8.9 mg/dL (8.5-10.1); CREATININE 0.69 mg/dL (0.70-1.30); SODIUM 138 mmol/L (136-145); eGFR NON BLACK RACES > 60 (>60)
[2021-04-20] MEDS: PEPCID 20 MG IV PREMIX* 20 MG/50 ML BAG IV SCH ×2 (09:04→21:45)
[2021-04-20] MEDS: PROTONIX INJ 40 MG VIAL IVP SCH ×2 (09:05→21:46)
[2021-04-20] MEDS: MILK OF MAGNESIA PO SCH ×2 (09:07→21:55)
[2021-04-20] MEDS ORDERED: DIPRIVAN VIAL 20 ML ONE ×2 (12:23→12:42)
[2021-04-20] MEDS ORDERED: LR 1000 ML IV 1,000 ML IV ONE ×3 (12:30→16:34)
[2021-04-20] MEDS ORDERED: ADRENALINE CHL INJ (ABBOJECT) ONE (12:36)
[2021-04-20] MEDS: LEVSIN/MAALOX/LIDOC VISC PO PRN (13:16)
--- NOTE | 2021-04-20 13:58 | OR.IMMED ---
Immediate Post-Op Note - Immediate Post-Op Note Pre-Op Diagnosis: abdominal pain . anemia with tarry stool . Post-Op Diagnosis: bleeding large duodenal ulcer with multiple small bleeders in the ulcer . Procedure: EGD with Bx . injection with epinephrine 2 cc in bleeding DU . Description of Procedure: see Operative report . Surgeon/Anesthesia Tech: Dr Pack. Specimens Removed: Bx DU , ANTRUM . Estimated Blood Loss: 2 to 3 cc . Drains: NONE Complications: none . Condition: Stable (if still bleeding requiring transfusion the will operate ..)
[2021-04-20] MEDS ORDERED: XYLOCAINE 2 % (PLAIN) ONE (14:06)
[2021-04-20] MEDS ORDERED: ZOFRAN INJ 4 MG VIAL ONE (14:06)
[2021-04-20] MEDS ORDERED: LACRI-LUBE S.O.P. ONE (14:06)
[2021-04-20] MEDS ORDERED: KETALAR ONE (14:06)
[2021-04-20] MEDS ORDERED: NEO-SYNEPHRINE INJ ONE (14:06)
[2021-04-20] MEDS ORDERED: DECADRON INJ ONE (14:06)
[2021-04-20] MEDS ORDERED: VERSED ONE (14:06)
[2021-04-20] MEDS ORDERED: DIPRIVAN VIAL ONE (14:06)
[2021-04-20] MEDS: CARAFATE PO SCH ×2 (14:28→21:55)
--- NOTE | 2021-04-20 15:37 | PCM.PROG ---
Progress Note Progress Note for Day of Date of Exam: 04/20/21 Subjective Subjective: Patient seen at bedside, no acute events overnight. He is currently NPO for EGD this AM. He reports mild abdominal pain. He had a tarry BM on Tuesday but has not had any since then. He denies nausea or vomiting. Labs: Hgb 7.9 , dropped from 8.3 Plt 213 Na: 138 K: 4.3 BUN/Cr: 1/0.69 Plan: keep NPO, follow up EGD findings. Continue hydration with NS. Continue IV protonix. Monitor H/H. Further plans based on EGD findings and surgery recommendations. Monitor AM labs/imaging. Past Medical Family Social History Past Med/Fam/Surg Hx: No changes since H&P Allergies: Allergies No Known Drug Allergies Allergy (Verified 11/20/20 11:47) Review of Systems ROS: No change since H&P Vital Signs and I&O's Vital Signs: Temperature 98.4 F Pulse Rate [Apical] 75 Pulse Rate 108 Respiratory Rate 18 Blood Pressure [Right Arm] 144/77 Blood Pressure 100/78 O2 Sat by Pulse Oximetry 100 Intake and Output: Intake & Output 04/17/21 04/18/21 04/19/21 04/20/21 23:59 23:59 23:59 23:59 Intake Total 3754 / 3754 3395 / 3395 3670 / 3670 214 / 214 Balance 3754 / 3754 3395 / 3395 3670 / 3670 214 / 214 Physical Exam Oriented: Normal Eyes: Normal Ear: Normal Nose: Normal Throat: Normal Respiratory: Normal Cardiovascular: Normal Auscultation: Bowel Sounds: Decreased Tenderness: Normal, Epigastric and Mild; negative Rebound and Guarding Skin: Normal Musculoskeletal: Normal Psychiatric: Normal Mood Description: Calm and Appropriate Affect: Normal Speech Pattern: Clear and Appropriate Laboratory and Diagnostics Result Diagrams: 04/20/21 03:59 04/20/21 03:59 Labs: Laboratory WBC 6.5 X10^3/uL (3.6-10.0) 04/20/21 03:59 RBC 2.94 X10^6/uL (4.7-6.0) L 04/20/21 03:59 Hgb 7.9 g/dL (13.5-18.0) L 04/20/21 03:59 Hct 23.8 % (42.0-54.0) L 04/20/21 03:59 MCV 81.1 fL (80.0-100.0) 04/20/21 03:59 MCH 27.0 pg (27.0-34.0) 04/20/21 03:59 MCHC 33.3 g/dL (33.0-35.0) 04/20/21 03:59 RDW 16.2 % (11.6-16.5) 04/20/21 03:59 Plt Count 213 X10^3/uL (150.0-450.0) 04/20/21 03:59 MPV 7.9 fL (7.4-11.0) 04/20/21 03:59 Neut % (Auto) 67.2 % (42.0-75.0) 04/20/21 03:59 Lymph % (Auto) 24.2 % (21.0-51.0) 04/20/21 03:59 [place] % (Auto) 5.0 % (0.0-13.0) 04/20/21 03:59 Eos % (Auto) 2.4 % (0.9-2.9) 04/20/21 03:59 Baso % (Auto) 1.2 % (0.2-1.0) H 04/20/21 03:59 Neut # (Auto) 4.4 x10^3/uL (2.2-4.8) 04/20/21 03:59 Lymph # (Auto) 1.6 X10^3/uL (1.3-2.9) 04/20/21 03:59 [place] # (Auto) 0.3 x10^3/uL (0.3-0.8) 04/20/21 03:59 Eos # (Auto) 0.2 x10^3/uL (0.0-0.2) 04/20/21 03:59 Baso # (Auto) 0.1 X10^3/uL (0.0-0.1) 04/20/21 03:59 Absolute Nucleated RBC 0.2 /100WBC 04/20/21 03:59 Sodium 138 mmol/L (136-145) 04/20/21 03:59 Corrected Sodium TNP 04/20/21 03:59 Potassium 4.3 mmol/L (3.5-5.1) 04/20/21 03:59 Chloride 106 mmol/L (98-107) 04/20/21 03:59 Carbon Dioxide 26.2 mmol/L (21-32) 04/20/21 03:59 BUN 1 mg/dL (7-18) L 04/20/21 03:59 Creatinine 0.69 mg/dL (0.70-1.30) L 04/20/21 03:59 Est GFR (MDRD) Af Amer > 60 (>60) 04/20/21 03:59 Est GFR (MDRD) Non-Af > 60 (>60) 04/20/21 03:59 Glucose 92 mg/dL (65-99) 04/20/21 03:59 Calcium 7.6 mg/dL (8.5-10.1) L 04/20/21 03:59 Corrected Calcium 8.9 mg/dL (8.5-10.1) 04/20/21 03:59 Total Bilirubin 0.10 mg/dL (0.2-1.0) L 04/20/21 03:59 AST 21 Units/L (15-37) 04/20/21 03:59 ALT 35 Units/L (12-78) 04/20/21 03:59 Alkaline Phosphatase 68 Units/L (46-116) 04/20/21 03:59 Creatine Kinase 99 Units/L (39-308) 04/16/21 16:18 CK-MB (CK-2) < 1.0 ng/mL (0-4.0) 04/16/21 16:18 CK/CKMB % Calc 1.0 % (<4) 04/16/21 16:18 Troponin I 0.02 ng/mL (0-1.5) 04/16/21 16:18 Total Protein 5.0 g/dL (6.4-8.2) L 04/20/21 03:59 Albumin 2.4 g/dL (3.4-5.0) L 04/20/21 03:59 Globulin 2.6 g/dL (2.5-4.5) 04/20/21 03:59 Albumin/Globulin Ratio 0.9 Ratio (1.1-2.1) L 04/20/21 03:59 Lipase 75 Units/L (73-393) 04/16/21 16:18 Specimen Type Clean catch urine 04/16/21 18:50 Urine Color Yellow (YELLOW) 04/16/21 18:50 Urine Appearance Cloudy (CLEAR) 04/16/21 18:50 Urine pH 7.0 (5.0 - 8.0) 04/16/21 18:50 Ur Specific [place] 1.015 (1.000-1.030) 04/16/21 18:50 Urine Protein 1+ (NEGATIVE) 04/16/21 18:50 Urine Glucose (UA) Negative (NEGATIVE) 04/16/21 18:50 Urine Ketones Negative (NEGATIVE) 04/16/21 18:50 Urine Occult Blood Negative (NEGATIVE) 04/16/21 18:50 Urine Nitrite Negative (NEGATIVE) 04/16/21 18:50 Urine Bilirubin Negative (NEGATIVE) 04/16/21 18:50 Urine Urobilinogen Normal (NORMAL) 04/16/21 18:50 Ur Leukocyte Esterase Negative (NEGATIVE) 04/16/21 18:50 Urine RBC None seen /HPF (0-3) 04/16/21 18:50 Urine WBC None seen /HPF (0-5) 04/16/21 18:50 Ur Squamous Epith Cells Rare /HPF (NEGATIVE) 04/16/21 18:50 Amorphous Sediment 3+ /HPF (NEGATIVE) 04/16/21 18:50 Urine Bacteria Negative /HPF (NEGATIVE) 04/16/21 18:50 Ur Culture Indicated? No/not indicated 04/16/21 18:50 Stool Description 25g bloody hard 04/17/21 12:30 Stl Occult Blood (IFOB) Positive (NEGATIVE) A 04/17/21 12:30 SARS-CoV-2 (PCR) Negative (NEGATIVE) 04/16/21 16:14 Influenza Type A (PCR) Negative (NEGATIVE) 04/16/21 16:14 Influenza Type B (PCR) Negative (NEGATIVE) 04/16/21 16:14 RSV (PCR) Negative (NEGATIVE) 04/16/21 16:14 Tissue Pathology To follow 04/20/21 12:45 Blood Type O POSITIVE 04/17/21 06:00 Antibody Screen Negative 04/17/21 06:00 Crossmatch See Detail 04/17/21 06:00 Plan (1) Anemia: Status: Acute Qualifiers: Anemia type: iron deficiency Iron deficiency anemia type: chronic blood loss Qualified Code(s): D50.0 - Iron deficiency anemia secondary to blood loss (chronic) (2) Volume depletion: Status: Acute (3) Peptic ulcer disease: Status: Chronic (4) Gastritis: Status: Acute Qualifiers: Chronicity: chronic Gastritis bleeding: presence of bleeding unspecified Gastritis type: unspecified gastritis Qualified Code(s): K29.50 - Unspecified chronic gastritis without bleeding
[2021-04-20] MEDS ORDERED: ANCEF 1 GRAM IV PREMIX* 1 G/50 ML BAG IV ONE (16:11)
[2021-04-20] MEDS ORDERED: DILAUDID INJ ONE ×2 (16:34→20:14)
[2021-04-20] MEDS ORDERED: OFIRMEV IV 1000 MG VIAL 1,000 MG/100 ML VIAL IV ONE (16:34)
[2021-04-20] MEDS ORDERED: BRIDION ONE (16:34)
[2021-04-20] MEDS ORDERED: FENTANYL VIAL INJ 100 mcg ONE (16:34)
[2021-04-20] MEDS ORDERED: ULTANE GAS IN ONE (16:35)
[2021-04-20] MEDS ORDERED: PEPCID 20 MG IV PREMIX* 50 ML IV ONE (16:35)
[2021-04-20] MEDS ORDERED: ZEMURON 50 MG VIAL ONE (16:35)
[2021-04-20] MEDS ORDERED: NS 500 ML IV 500 ML IV ONE (16:56)
[2021-04-20] MEDS ORDERED: POLYMYXIN B SULFATE ONE (17:39)
[2021-04-20] MEDS ORDERED: BARHEMSYS INJ IVP PRN (20:05)
[2021-04-20] MEDS ORDERED: BENADRYL INJ 50 MG VIAL IVP PRN (20:05)
[2021-04-20] MEDS ORDERED: PHENERGAN INJ 25 MG IM PRN (20:05)
[2021-04-20] MEDS: DILAUDID INJ IVP PRN ×5 (20:14→23:38)
[2021-04-20] MEDS ORDERED: PROTONIX INJ 40 MG VIAL IVP SCH (21:00)
[2021-04-20] MEDS: D5 1/2 NS 1000 ML 1,000 ML IV SCH (21:44)
[2021-04-20] MEDS: COLACE CAP 100 MG PO SCH (21:55)
[2021-04-20] MEDS: ANCEF VIAL 1 GRAM IVP SCH (21:55)
[2021-04-20] MEDS ORDERED: NS 100 ML IV 100 ML ONE (21:57)
[2021-04-20] MEDS: ZOFRAN INJ 4 MG VIAL IVP PRN (23:38)
[2021-04-21] MEDS: DILAUDID INJ IVP PRN ×4 (03:46→21:07)
[2021-04-21] MEDS: D5 1/2 NS 1000 ML 1,000 ML IV SCH ×4 (03:53→21:05)
[2021-04-21] MEDS ORDERED: NS 100 ML IV 100 ML ONE ×2 (04:12→20:50)
[2021-04-21] MEDS: CARAFATE PO SCH ×3 (05:00→21:05)
[2021-04-21] MEDS: ANCEF VIAL 1 GRAM IVP SCH ×3 (05:00→21:05)
[2021-04-21 06:23] LABS: BASOPHILS % (AUTO) 0.1 % (0.2-1.0); LYMPHOCYTES # (AUTO) 0.6 X10^3/uL (1.3-2.9); MEAN CORPUSCULAR HEMOGLOBIN 27.8 pg (27.0-34.0); MEAN CORPUSCULAR HGB CONC 33.5 g/dL (33.0-35.0); MEAN CORPUSCULAR VOLUME 83.1 fL (80.0-100.0); MEAN PLATELET VOLUME 8.1 fL (7.4-11.0); MONOCYTES # (AUTO) 0.4 x10^3/uL (0.3-0.8); MONOCYTES % (AUTO) 1.9 % (0.0-13.0); NEUTROPHILS # (AUTO) 18.3 x10^3/uL (2.2-4.8); PLATELET COUNT 262 X10^3/uL (150.0-450.0); RED BLOOD COUNT 3.85 X10^6/uL (4.7-6.0); RED CELL DISTRIBUTION WIDTH 16.2 % (11.6-16.5)
[2021-04-21 06:33] LABS: HEMOGLOBIN 10.7 g/dL (13.5-18.0); WHITE BLOOD COUNT 19.3 X10^3/uL (3.6-10.0)
[2021-04-21 06:40] LABS: ALANINE AMINOTRANSFERASE 40 Units/L (12-78); ALBUMIN 2.9 g/dL (3.4-5.0); ALKALINE PHOSPHATASE 86 Units/L (46-116); ASPARTATE AMINO TRANSFERASE 26 Units/L (15-37); BLOOD UREA NITROGEN 6 mg/dL (7-18); CALCIUM 8.2 mg/dL (8.5-10.1); CARBON DIOXIDE 25.8 mmol/L (21-32); CHLORIDE 98 mmol/L (98-107); COR CA(FOR HYPOALB) 9.1 mg/dL (8.5-10.1); COR NA(FOR HYPERGLY) 134 mmol/L (136-145); CREATININE 0.85 mg/dL (0.70-1.30); SODIUM 132 mmol/L (136-145); TOTAL PROTEIN 6.2 g/dL (6.4-8.2); eGFR NON BLACK RACES > 60 (>60)
[2021-04-21 07:29] LABS: BAND NEUTROPHILS % 4 % (0-10); PLATELET MORPHOLOGY COMMENT NORMAL (NORMAL)
[2021-04-21] MEDS: ZOFRAN INJ 4 MG VIAL IVP PRN ×2 (09:08→21:07)
[2021-04-21] MEDS: LEVSIN/MAALOX/LIDOC VISC PO PRN (09:09)
[2021-04-21] MEDS: PROTONIX INJ 40 MG VIAL IVP SCH ×2 (09:11→21:06)
[2021-04-21] MEDS: PEPCID 20 MG IV PREMIX* 20 MG/50 ML BAG IV SCH ×2 (09:11→21:06)
--- NOTE | 2021-04-21 13:11 | PCM.PROG ---
Progress Note Progress Note for Day of Date of Exam: 04/21/21 Subjective Subjective: POD# 1 Patient seen at bedside. He had EGD done yesterday which showed bleeding duodenal ulcer and also chronic scarring from previous ulcers. There were several bleeding vessels within the ulcer. Surgical intervention was discussed with the patient and he was taken back to the OR later in the afternoon. He had Laparotomy and Partial gastrectomy with Billroth II retrocolic anastomosis. P atient did well without any complications. He did receive another unit of PRBC. His Hgb is stable this AM. He still has the NGT, tsai and JACKY drain. Patient reports pain well controlled with medicine. Patient remains NPO. Labs: Hgb 10.7 Plt 262 Na: 132 K: 4.9 BUN/Cr: 6/0.85 Plan: keep NPO, follow surgery recommendations. Monitor JACKY drain output. Continue IV hydration. Continue PPI and abx. Diet recommendations as per surgery. Monitor AM labs. Past Medical Family Social History Past Med/Fam/Surg Hx: No changes since H&P Allergies: Allergies No Known Drug Allergies Allergy (Verified 11/20/20 11:47) Review of Systems ROS: No change since H&P Vital Signs and I&O's Vital Signs: Temperature 97.7 F Pulse Rate [Apical] 75 Pulse Rate 75 Respiratory Rate 20 Blood Pressure [Right Arm] 141/77 Blood Pressure 142/89 O2 Sat by Pulse Oximetry 99 Intake and Output: Intake & Output 04/18/21 04/19/21 04/20/21 04/21/21 23:59 23:59 23:59 23:59 Intake Total 3395 / 3395 3670 / 3670 5846 / 5846 900 / 900 Output Total 2744 / 2744 420 / 420 Balance 3395 / 3395 3670 / 3670 3102 / 3102 480 / 480 Physical Exam Oriented: Normal Eyes: Normal Ear: Normal Nose: Normal Throat: Normal Respiratory: Normal Cardiovascular: Normal Auscultation: Bowel Sounds: Normal Tenderness: Normal, Epigastric (dressing intact, JACKY drain noted ) and Mild; negative Rebound and Guarding Skin: Normal Musculoskeletal: Normal Psychiatric: Normal Mood Description: Calm Affect: Normal Speech Pattern: Clear and Appropriate Laboratory and Diagnostics Result Diagrams: 04/21/21 05:12 04/21/21 05:12 Labs: Laboratory WBC 19.3 X10^3/uL (3.6-10.0) H D 04/21/21 05:12 RBC 3.85 X10^6/uL (4.7-6.0) L 04/21/21 05:12 Hgb 10.7 g/dL (13.5-18.0) L D 04/21/21 05:12 Hct 32.0 % (42.0-54.0) L 04/21/21 05:12 MCV 83.1 fL (80.0-100.0) 04/21/21 05:12 MCH 27.8 pg (27.0-34.0) 04/21/21 05:12 MCHC 33.5 g/dL (33.0-35.0) 04/21/21 05:12 RDW 16.2 % (11.6-16.5) 04/21/21 05:12 Plt Count 262 X10^3/uL (150.0-450.0) 04/21/21 05:12 Plt Count Comment Adequate (ADEQUATE) 04/21/21 05:12 MPV 8.1 fL (7.4-11.0) 04/21/21 05:12 Neut % (Auto) 95.0 % (42.0-75.0) H 04/21/21 05:12 Lymph % (Auto) 3.0 % (21.0-51.0) L 04/21/21 05:12 [place] % (Auto) 1.9 % (0.0-13.0) 04/21/21 05:12 Eos % (Auto) 0.0 % (0.9-2.9) L 04/21/21 05:12 Baso % (Auto) 0.1 % (0.2-1.0) L 04/21/21 05:12 Neut # (Auto) 18.3 x10^3/uL (2.2-4.8) H 04/21/21 05:12 Lymph # (Auto) 0.6 X10^3/uL (1.3-2.9) L 04/21/21 05:12 [place] # (Auto) 0.4 x10^3/uL (0.3-0.8) 04/21/21 05:12 Eos # (Auto) 0.0 x10^3/uL (0.0-0.2) 04/21/21 05:12 Baso # (Auto) 0.0 X10^3/uL (0.0-0.1) 04/21/21 05:12 Absolute Nucleated RBC 0.1 /100WBC 04/21/21 05:12 Total Counted 100 04/21/21 05:12 Neutrophils % (Manual) 90 % (39-76) H 04/21/21 05:12 Band Neutrophils % 4 % (0-10) 04/21/21 05:12 Lymphocytes % (Manual) 5 % (13-43) L 04/21/21 05:12 Monocytes % (Manual) 1 % (4-9) L 04/21/21 05:12 Plt Morphology Comment Normal (NORMAL) 04/21/21 05:12 RBC Morphology Normal (NORMAL) 04/21/21 05:12 Sodium 132 mmol/L (136-145) L 04/21/21 05:12 Corrected Sodium 134 mmol/L (136-145) L 04/21/21 05:12 Potassium 4.9 mmol/L (3.5-5.1) 04/21/21 05:12 Chloride 98 mmol/L (98-107) 04/21/21 05:12 Carbon Dioxide 25.8 mmol/L (21-32) 04/21/21 05:12 BUN 6 mg/dL (7-18) L 04/21/21 05:12 Creatinine 0.85 mg/dL (0.70-1.30) 04/21/21 05:12 Est GFR (MDRD) Af Amer > 60 (>60) 04/21/21 05:12 Est GFR (MDRD) Non-Af > 60 (>60) 04/21/21 05:12 Glucose 191 mg/dL (65-99) H 04/21/21 05:12 Calcium 8.2 mg/dL (8.5-10.1) L 04/21/21 05:12 Corrected Calcium 9.1 mg/dL (8.5-10.1) 04/21/21 05:12 Total Bilirubin 0.20 mg/dL (0.2-1.0) 04/21/21 05:12 AST 26 Units/L (15-37) 04/21/21 05:12 ALT 40 Units/L (12-78) 04/21/21 05:12 Alkaline Phosphatase 86 Units/L (46-116) 04/21/21 05:12 Creatine Kinase 99 Units/L (39-308) 04/16/21 16:18 CK-MB (CK-2) < 1.0 ng/mL (0-4.0) 04/16/21 16:18 CK/CKMB % Calc 1.0 % (<4) 04/16/21 16:18 Troponin I 0.02 ng/mL (0-1.5) 04/16/21 16:18 Total Protein 6.2 g/dL (6.4-8.2) L 04/21/21 05:12 Albumin 2.9 g/dL (3.4-5.0) L 04/21/21 05:12 Globulin 3.3 g/dL (2.5-4.5) 04/21/21 05:12 Albumin/Globulin Ratio 0.9 Ratio (1.1-2.1) L 04/21/21 05:12 Lipase 75 Units/L (73-393) 04/16/21 16:18 Specimen Type Clean catch urine 04/16/21 18:50 Urine Color Yellow (YELLOW) 04/16/21 18:50 Urine Appearance Cloudy (CLEAR) 04/16/21 18:50 Urine pH 7.0 (5.0 - 8.0) 04/16/21 18:50 Ur Specific [place] 1.015 (1.000-1.030) 04/16/21 18:50 Urine Protein 1+ (NEGATIVE) 04/16/21 18:50 Urine Glucose (UA) Negative (NEGATIVE) 04/16/21 18:50 Urine Ketones Negative (NEGATIVE) 04/16/21 18:50 Urine Occult Blood Negative (NEGATIVE) 04/16/21 18:50 Urine Nitrite Negative (NEGATIVE) 04/16/21 18:50 Urine Bilirubin Negative (NEGATIVE) 04/16/21 18:50 Urine Urobilinogen Normal (NORMAL) 04/16/21 18:50 Ur Leukocyte Esterase Negative (NEGATIVE) 04/16/21 18:50 Urine RBC None seen /HPF (0-3) 04/16/21 18:50 Urine WBC None seen /HPF (0-5) 04/16/21 18:50 Ur Squamous Epith Cells Rare /HPF (NEGATIVE) 04/16/21 18:50 Amorphous Sediment 3+ /HPF (NEGATIVE) 04/16/21 18:50 Urine Bacteria Negative /HPF (NEGATIVE) 04/16/21 18:50 Ur Culture Indicated? No/not indicated 04/16/21 18:50 Stool Description 25g bloody hard 04/17/21 12:30 Stl Occult Blood (IFOB) Positive (NEGATIVE) A 04/17/21 12:30 SARS-CoV-2 (PCR) Negative (NEGATIVE) 04/16/21 16:14 Influenza Type A (PCR) Negative (NEGATIVE) 04/16/21 16:14 Influenza Type B (PCR) Negative (NEGATIVE) 04/16/21 16:14 RSV (PCR) Negative (NEGATIVE) 04/16/21 16:14 Tissue Pathology To follow 04/20/21 18:56 Blood Type O POSITIVE 04/20/21 17:02 Antibody Screen Negative 04/20/21 17:02 Crossmatch See Detail 04/20/21 17:02 Plan (1) S/P partial gastrectomy: Status: Acute (2) Anemia: Status: Acute Qualifiers: Anemia type: iron deficiency Iron deficiency anemia type: chronic blood loss Qualified Code(s): D50.0 - Iron deficiency anemia secondary to blood loss (chronic) (3) Volume depletion: Status: Acute (4) Peptic ulcer disease: Status: Chronic (5) Gastritis: Status: Acute Qualifiers: Chronicity: chronic Gastritis bleeding: presence of bleeding unspecified Gastritis type: unspecified gastritis Qualified Code(s): K29.50 - Unspecified chronic gastritis without bleeding (6) Duodenal bulb ulcer: Status: Acute
[2021-04-21] MEDS: MILK OF MAGNESIA PO SCH ×2 (15:21→21:06)
--- NOTE | 2021-04-21 16:41 | RAD ---
HISTORYNG TUBE PLACEMENT, S/P PARTIAL STOMACH REMOVAL LAST [id number] enteric tube is in the mid lower abdomen. This may be in th e proximal small bowel particularly if the patient has had a gastrojejunostomy.Gas is present in nond ilated colon into the rectum. There is no bowel dilatation.Skin silke are seen in the midline abdom inal wall.IMPRESSION1. Enteric tube in the mid lower abdomenElectronically signed by: Hemant Kahn ms (Apr 21, 2021 16:39:25)
--- NOTE | 2021-04-21 17:11 | DR.PROGNOT ---
Hospital Progress Notes - Progress Note for Day of: Progress Note Date: 04/21/21 - Chief Complaint Chief Complaint: PO gastrectomy for bleeding chronic DU . doing fairly well . c/o incisional pain.. stable HG , HCt . good urinr OUT PUT . - Past Medical Family Social History Past Med/Fam/Surg Hx: No changes since H&P Allergies: Allergies No Known Drug Allergies Allergy (Verified 11/20/20 11:47) - Review Of Systems ROS: No change since H&P - Vital Signs Vital Signs: Temperature 97.7 F Pulse Rate [Apical] 104 Pulse Rate 75 Respiratory Rate 20 Blood Pressure [Right Arm] 132/99 Blood Pressure 142/89 O2 Sat by Pulse Oximetry 100 - Physical Exam Oriented: Normal Eyes: Normal Ear: Normal Nose: Normal Throat: Normal Respiratory: Normal Cardiovascular: Normal GI:Auscultation: Normal, Decreased GI:Palpation: Normal GI: Tenderness: Normal, Other (soft , flat abdomen with diffusr tenderness .). negative: Rebound, Guarding Skin: Normal Musculoskeletal: Normal Psychiatric: Normal Mood Description: Calm Affect: Normal Speech Pattern: Clear, Appropriate - Laboratory and Diagnostics Result Diagrams: 04/21/21 05:12 04/21/21 05:12 Labs: Laboratory WBC 19.3 X10^3/uL (3.6-10.0) H D 04/21/21 05:12 RBC 3.85 X10^6/uL (4.7-6.0) L 04/21/21 05:12 Hgb 10.7 g/dL (13.5-18.0) L D 04/21/21 05:12 Hct 32.0 % (42.0-54.0) L 04/21/21 05:12 MCV 83.1 fL (80.0-100.0) 04/21/21 05:12 MCH 27.8 pg (27.0-34.0) 04/21/21 05:12 MCHC 33.5 g/dL (33.0-35.0) 04/21/21 05:12 RDW 16.2 % (11.6-16.5) 04/21/21 05:12 Plt Count 262 X10^3/uL (150.0-450.0) 04/21/21 05:12 Plt Count Comment Adequate (ADEQUATE) 04/21/21 05:12 MPV 8.1 fL (7.4-11.0) 04/21/21 05:12 Neut % (Auto) 95.0 % (42.0-75.0) H 04/21/21 05:12 Lymph % (Auto) 3.0 % (21.0-51.0) L 04/21/21 05:12 [place] % (Auto) 1.9 % (0.0-13.0) 04/21/21 05:12 Eos % (Auto) 0.0 % (0.9-2.9) L 04/21/21 05:12 Baso % (Auto) 0.1 % (0.2-1.0) L 04/21/21 05:12 Neut # (Auto) 18.3 x10^3/uL (2.2-4.8) H 04/21/21 05:12 Lymph # (Auto) 0.6 X10^3/uL (1.3-2.9) L 04/21/21 05:12 [place] # (Auto) 0.4 x10^3/uL (0.3-0.8) 04/21/21 05:12 Eos # (Auto) 0.0 x10^3/uL (0.0-0.2) 04/21/21 05:12 Baso # (Auto) 0.0 X10^3/uL (0.0-0.1) 04/21/21 05:12 Absolute Nucleated RBC 0.1 /100WBC 04/21/21 05:12 Total Counted 100 04/21/21 05:12 Neutrophils % (Manual) 90 % (39-76) H 04/21/21 05:12 Band Neutrophils % 4 % (0-10) 04/21/21 05:12 Lymphocytes % (Manual) 5 % (13-43) L 04/21/21 05:12 Monocytes % (Manual) 1 % (4-9) L 04/21/21 05:12 Plt Morphology Comment Normal (NORMAL) 04/21/21 05:12 RBC Morphology Normal (NORMAL) 04/21/21 05:12 Sodium 132 mmol/L (136-145) L 04/21/21 05:12 Corrected Sodium 134 mmol/L (136-145) L 04/21/21 05:12 Potassium 4.9 mmol/L (3.5-5.1) 04/21/21 05:12 Chloride 98 mmol/L (98-107) 04/21/21 05:12 Carbon Dioxide 25.8 mmol/L (21-32) 04/21/21 05:12 BUN 6 mg/dL (7-18) L 04/21/21 05:12 Creatinine 0.85 mg/dL (0.70-1.30) 04/21/21 05:12 Est GFR (MDRD) Af Amer > 60 (>60) 04/21/21 05:12 Est GFR (MDRD) Non-Af > 60 (>60) 04/21/21 05:12 Glucose 191 mg/dL (65-99) H 04/21/21 05:12 Calcium 8.2 mg/dL (8.5-10.1) L 04/21/21 05:12 Corrected Calcium 9.1 mg/dL (8.5-10.1) 04/21/21 05:12 Total Bilirubin 0.20 mg/dL (0.2-1.0) 04/21/21 05:12 AST 26 Units/L (15-37) 04/21/21 05:12 ALT 40 Units/L (12-78) 04/21/21 05:12 Alkaline Phosphatase 86 Units/L (46-116) 04/21/21 05:12 Creatine Kinase 99 Units/L (39-308) 04/16/21 16:18 CK-MB (CK-2) < 1.0 ng/mL (0-4.0) 04/16/21 16:18 CK/CKMB % Calc 1.0 % (<4) 04/16/21 16:18 Troponin I 0.02 ng/mL (0-1.5) 04/16/21 16:18 Total Protein 6.2 g/dL (6.4-8.2) L 04/21/21 05:12 Albumin 2.9 g/dL (3.4-5.0) L 04/21/21 05:12 Globulin 3.3 g/dL (2.5-4.5) 04/21/21 05:12 Albumin/Globulin Ratio 0.9 Ratio (1.1-2.1) L 04/21/21 05:12 Lipase 75 Units/L (73-393) 04/16/21 16:18 Specimen Type Clean catch urine 04/16/21 18:50 Urine Color Yellow (YELLOW) 04/16/21 18:50 Urine Appearance Cloudy (CLEAR) 04/16/21 18:50 Urine pH 7.0 (5.0 - 8.0) 04/16/21 18:50 Ur Specific [place] 1.015 (1.000-1.030) 04/16/21 18:50 Urine Protein 1+ (NEGATIVE) 04/16/21 18:50 Urine Glucose (UA) Negative (NEGATIVE) 04/16/21 18:50 Urine Ketones Negative (NEGATIVE) 04/16/21 18:50 Urine Occult Blood Negative (NEGATIVE) 04/16/21 18:50 Urine Nitrite Negative (NEGATIVE) 04/16/21 18:50 Urine Bilirubin Negative (NEGATIVE) 04/16/21 18:50 Urine Urobilinogen Normal (NORMAL) 04/16/21 18:50 Ur Leukocyte Esterase Negative (NEGATIVE) 04/16/21 18:50 Urine RBC None seen /HPF (0-3) 04/16/21 18:50 Urine WBC None seen /HPF (0-5) 04/16/21 18:50 Ur Squamous Epith Cells Rare /HPF (NEGATIVE) 04/16/21 18:50 Amorphous Sediment 3+ /HPF (NEGATIVE) 04/16/21 18:50 Urine Bacteria Negative /HPF (NEGATIVE) 04/16/21 18:50 Ur Culture Indicated? No/not indicated 04/16/21 18:50 Stool Description 25g bloody hard 04/17/21 12:30 Stl Occult Blood (IFOB) Positive (NEGATIVE) A 04/17/21 12:30 SARS-CoV-2 (PCR) Negative (NEGATIVE) 04/16/21 16:14 Influenza Type A (PCR) Negative (NEGATIVE) 04/16/21 16:14 Influenza Type B (PCR) Negative (NEGATIVE) 04/16/21 16:14 RSV (PCR) Negative (NEGATIVE) 04/16/21 16:14 Tissue Pathology To follow 04/20/21 18:56 Blood Type O POSITIVE 04/20/21 17:02 Antibody Screen Negative 04/20/21 17:02 Crossmatch See Detail 04/20/21 17:02 - Assessment and Plan 1: recurrent bleeding chronic duodenal ulcer .. s/p partial gasterectomy . Bilroth 11 retrocolic anastomosis .. same PO care . OOB, incentive spirometer .. incentive spirometer . , OOB . to D/C NGT in am . - Problem Patient Problems: Patient Problems Anemia (Acute) D64.9 Syncope (Acute) R55 Volume depletion (Acute) E86.9 Peptic ulcer disease (Chronic) K27.9
[2021-04-21] MEDS: COLACE CAP 100 MG PO SCH (21:06)
[2021-04-22] MEDS ORDERED: NS 100 ML IV 100 ML ONE ×2 (04:21→20:19)
[2021-04-22] MEDS: D5 1/2 NS 1000 ML 1,000 ML IV SCH ×4 (04:34→21:28)
[2021-04-22] MEDS: DILAUDID INJ IVP PRN ×5 (04:34→21:00)
[2021-04-22] MEDS: ZOFRAN INJ 4 MG VIAL IVP PRN (04:35)
[2021-04-22] MEDS: ANCEF VIAL 1 GRAM IVP SCH ×3 (05:03→21:00)
[2021-04-22] MEDS: CARAFATE PO SCH ×3 (05:57→21:28)
[2021-04-22 06:47] LABS: ALANINE AMINOTRANSFERASE 29 Units/L (12-78); ALBUMIN 2.4 g/dL (3.4-5.0); ALKALINE PHOSPHATASE 60 Units/L (46-116); ASPARTATE AMINO TRANSFERASE 26 Units/L (15-37); BLOOD UREA NITROGEN 7 mg/dL (7-18); CALCIUM 7.6 mg/dL (8.5-10.1); CHLORIDE 98 mmol/L (98-107); COR CA(FOR HYPOALB) 8.9 mg/dL (8.5-10.1); COR NA(FOR HYPERGLY) 133 mmol/L (136-145); CREATININE 0.95 mg/dL (0.70-1.30); SODIUM 132 mmol/L (136-145); TOTAL PROTEIN 5.2 g/dL (6.4-8.2); eGFR NON BLACK RACES > 60 (>60)
[2021-04-22 07:09] LABS: BASOPHILS % (AUTO) 0.2 % (0.2-1.0); EOSINOPHILS % (AUTO) 0.1 % (0.9-2.9); LYMPHOCYTES # (AUTO) 0.9 X10^3/uL (1.3-2.9); LYMPHOCYTES % (AUTO) 13.4 % (21.0-51.0); MEAN CORPUSCULAR HEMOGLOBIN 28.1 pg (27.0-34.0); MEAN CORPUSCULAR HGB CONC 34.1 g/dL (33.0-35.0); MEAN CORPUSCULAR VOLUME 82.5 fL (80.0-100.0); MEAN PLATELET VOLUME 7.4 fL (7.4-11.0); MONOCYTES # (AUTO) 0.4 x10^3/uL (0.3-0.8); MONOCYTES % (AUTO) 5.4 % (0.0-13.0); NEUTROPHILS # (AUTO) 5.6 x10^3/uL (2.2-4.8); NEUTROPHILS % (AUTO) 80.9 % (42.0-75.0); PLATELET COUNT 200 X10^3/uL (150.0-450.0); RED BLOOD COUNT 2.13 X10^6/uL (4.7-6.0); RED CELL DISTRIBUTION WIDTH 16.2 % (11.6-16.5)
[2021-04-22 07:14] LABS: HEMATOCRIT 17.5 % (42.0-54.0)
--- NOTE | 2021-04-22 07:58 | DR.PROGNOT ---
Hospital Progress Notes - Progress Note for Day of: Progress Note Date: 04/22/21 - Chief Complaint Chief Complaint: PO gastrectomy for bleeding chronic DU . doing fairly well .no significant abdominal pain .. had normal BM yeserday . no bleeding ... minimal drainage in JACKY. Hgb 6 this am ? good urinr OUT PUT . - Past Medical Family Social History Past Med/Fam/Surg Hx: No changes since H&P Allergies: Allergies No Known Drug Allergies Allergy (Verified 11/20/20 11:47) - Review Of Systems ROS: No change since H&P - Vital Signs Vital Signs: Temperature 98.4 F Pulse Rate [Apical] 109 Pulse Rate 75 Respiratory Rate 20 Blood Pressure [Right Arm] 145/105 Blood Pressure 142/89 O2 Sat by Pulse Oximetry 100 - Physical Exam Oriented: Normal Eyes: Normal Ear: Normal Nose: Normal Throat: Normal Respiratory: Normal Cardiovascular: Normal GI:Auscultation: Normal, Decreased GI:Palpation: Normal GI: Tenderness: Normal, Other (soft , flat abdomen with diffusr tenderness .). negative: Rebound, Guarding Skin: Normal Musculoskeletal: Normal Psychiatric: Normal Mood Description: Calm Affect: Normal Speech Pattern: Clear, Appropriate - Laboratory and Diagnostics Result Diagrams: 04/22/21 05:59 04/22/21 05:59 Labs: Laboratory WBC 7.0 X10^3/uL (3.6-10.0) D 04/22/21 05:59 RBC 2.13 X10^6/uL (4.7-6.0) L 04/22/21 05:59 Hgb 6.0 g/dL (13.5-18.0) L* D 04/22/21 05:59 Hct 17.5 % (42.0-54.0) L* 04/22/21 05:59 MCV 82.5 fL (80.0-100.0) 04/22/21 05:59 MCH 28.1 pg (27.0-34.0) 04/22/21 05:59 MCHC 34.1 g/dL (33.0-35.0) 04/22/21 05:59 RDW 16.2 % (11.6-16.5) 04/22/21 05:59 Plt Count 200 X10^3/uL (150.0-450.0) 04/22/21 05:59 Plt Count Comment Adequate (ADEQUATE) 04/21/21 05:12 MPV 7.4 fL (7.4-11.0) 04/22/21 05:59 Neut % (Auto) 80.9 % (42.0-75.0) H 04/22/21 05:59 Lymph % (Auto) 13.4 % (21.0-51.0) L 04/22/21 05:59 [place] % (Auto) 5.4 % (0.0-13.0) 04/22/21 05:59 Eos % (Auto) 0.1 % (0.9-2.9) L 04/22/21 05:59 Baso % (Auto) 0.2 % (0.2-1.0) 04/22/21 05:59 Neut # (Auto) 5.6 x10^3/uL (2.2-4.8) H 04/22/21 05:59 Lymph # (Auto) 0.9 X10^3/uL (1.3-2.9) L 04/22/21 05:59 [place] # (Auto) 0.4 x10^3/uL (0.3-0.8) 04/22/21 05:59 Eos # (Auto) 0.0 x10^3/uL (0.0-0.2) 04/22/21 05:59 Baso # (Auto) 0.0 X10^3/uL (0.0-0.1) 04/22/21 05:59 Absolute Nucleated RBC 0.1 /100WBC 04/22/21 05:59 Total Counted 100 04/21/21 05:12 Neutrophils % (Manual) 90 % (39-76) H 04/21/21 05:12 Band Neutrophils % 4 % (0-10) 04/21/21 05:12 Lymphocytes % (Manual) 5 % (13-43) L 04/21/21 05:12 Monocytes % (Manual) 1 % (4-9) L 04/21/21 05:12 Plt Morphology Comment Normal (NORMAL) 04/21/21 05:12 RBC Morphology Normal (NORMAL) 04/21/21 05:12 Sodium 132 mmol/L (136-145) L 04/22/21 05:59 Corrected Sodium 133 mmol/L (136-145) L 04/22/21 05:59 Potassium 4.9 mmol/L (3.5-5.1) 04/22/21 05:59 Chloride 98 mmol/L (98-107) 04/22/21 05:59 Carbon Dioxide 27.0 mmol/L (21-32) 04/22/21 05:59 BUN 7 mg/dL (7-18) 04/22/21 05:59 Creatinine 0.95 mg/dL (0.70-1.30) 04/22/21 05:59 Est GFR (MDRD) Af Amer > 60 (>60) 04/22/21 05:59 Est GFR (MDRD) Non-Af > 60 (>60) 04/22/21 05:59 Glucose 149 mg/dL (65-99) H 04/22/21 05:59 Calcium 7.6 mg/dL (8.5-10.1) L 04/22/21 05:59 Corrected Calcium 8.9 mg/dL (8.5-10.1) 04/22/21 05:59 Total Bilirubin 0.10 mg/dL (0.2-1.0) L 04/22/21 05:59 AST 26 Units/L (15-37) 04/22/21 05:59 ALT 29 Units/L (12-78) 04/22/21 05:59 Alkaline Phosphatase 60 Units/L (46-116) 04/22/21 05:59 Creatine Kinase 99 Units/L (39-308) 04/16/21 16:18 CK-MB (CK-2) < 1.0 ng/mL (0-4.0) 04/16/21 16:18 CK/CKMB % Calc 1.0 % (<4) 04/16/21 16:18 Troponin I 0.02 ng/mL (0-1.5) 04/16/21 16:18 Total Protein 5.2 g/dL (6.4-8.2) L 04/22/21 05:59 Albumin 2.4 g/dL (3.4-5.0) L 04/22/21 05:59 Globulin 2.8 g/dL (2.5-4.5) 04/22/21 05:59 Albumin/Globulin Ratio 0.9 Ratio (1.1-2.1) L 04/22/21 05:59 Lipase 75 Units/L (73-393) 04/16/21 16:18 Specimen Type Clean catch urine 04/16/21 18:50 Urine Color Yellow (YELLOW) 04/16/21 18:50 Urine Appearance Cloudy (CLEAR) 04/16/21 18:50 Urine pH 7.0 (5.0 - 8.0) 04/16/21 18:50 Ur Specific [place] 1.015 (1.000-1.030) 04/16/21 18:50 Urine Protein 1+ (NEGATIVE) 04/16/21 18:50 Urine Glucose (UA) Negative (NEGATIVE) 04/16/21 18:50 Urine Ketones Negative (NEGATIVE) 04/16/21 18:50 Urine Occult Blood Negative (NEGATIVE) 04/16/21 18:50 Urine Nitrite Negative (NEGATIVE) 04/16/21 18:50 Urine Bilirubin Negative (NEGATIVE) 04/16/21 18:50 Urine Urobilinogen Normal (NORMAL) 04/16/21 18:50 Ur Leukocyte Esterase Negative (NEGATIVE) 04/16/21 18:50 Urine RBC None seen /HPF (0-3) 04/16/21 18:50 Urine WBC None seen /HPF (0-5) 04/16/21 18:50 Ur Squamous Epith Cells Rare /HPF (NEGATIVE) 04/16/21 18:50 Amorphous Sediment 3+ /HPF (NEGATIVE) 04/16/21 18:50 Urine Bacteria Negative /HPF (NEGATIVE) 04/16/21 18:50 Ur Culture Indicated? No/not indicated 04/16/21 18:50 Stool Description 25g bloody hard 04/17/21 12:30 Stl Occult Blood (IFOB) Positive (NEGATIVE) A 04/17/21 12:30 SARS-CoV-2 (PCR) Negative (NEGATIVE) 04/16/21 16:14 Influenza Type A (PCR) Negative (NEGATIVE) 04/16/21 16:14 Influenza Type B (PCR) Negative (NEGATIVE) 04/16/21 16:14 RSV (PCR) Negative (NEGATIVE) 04/16/21 16:14 Tissue Pathology To follow 04/20/21 18:56 Blood Type O POSITIVE 04/20/21 17:02 Antibody Screen Negative 04/20/21 17:02 Crossmatch See Detail 04/20/21 17:02 - Assessment and Plan 1: recurrent bleeding chronic duodenal ulcer .. s/p partial gasterectomy . Bilroth 11 retrocolic anastomosis .. anemia .( no active bleeding now ). same PO care . OOB, incentive spirometer .. incentive spirometer . , OOB . d/c tsai . on clear liquid . - Problem Patient Problems: Patient Problems Anemia (Acute) D64.9 Syncope (Acute) R55 Volume depletion (Acute) E86.9 Peptic ulcer disease (Chronic) K27.9
[2021-04-22] MEDS: MILK OF MAGNESIA PO SCH ×2 (10:05→21:28)
[2021-04-22] MEDS: PEPCID 20 MG IV PREMIX* 20 MG/50 ML BAG IV SCH ×2 (10:05→21:28)
[2021-04-22] MEDS: PROTONIX INJ 40 MG VIAL IVP SCH ×2 (10:05→21:28)
[2021-04-22 13:39] LABS: HEMOGLOBIN 5.8 g/dL (13.5-18.0)
[2021-04-22 13:40] LABS: HEMATOCRIT 16.9 % (42.0-54.0)
[2021-04-22] MEDS ORDERED: BENADRYL INJ 50 MG VIAL IVP ONE (15:30)
--- NOTE | 2021-04-22 15:50 | PCM.PROG ---
Progress Note Progress Note for Day of Date of Exam: 04/22/21 Subjective Subjective: POD# 2 Patient seen at bedside. He reports doing well. He has one BM yesterday, denies bleeding. He states his abdominal pain is controlled. His Hgb this morning did drop to 6. S/P EGD: showed bleeding duodenal ulcer and also chronic scarring from previous ulcers. There were several bleeding vessels within the ulcer S/P Laparotomy and Partial gastrectomy with Billroth II retrocolic anastomosis. Labs: Hgb:6 Plt 200 K:4.9 BUN/Cr: 7/0.95 Plan: Will repeat H/H, if still below < 7 then transfuse 2 units. Patient denies active bleeding. Follow surgery recommendations, started on clears this morning. Continue pain control. Continue dressing changes, monitor JACKY drain output. Mon itor AM labs and imaging. Past Medical Family Social History Past Med/Fam/Surg Hx: No changes since H&P Allergies: Allergies No Known Drug Allergies Allergy (Verified 11/20/20 11:47) Review of Systems ROS: No change since H&P Vital Signs and I&O's Vital Signs: Temperature 98.7 F Pulse Rate [Apical] 119 Pulse Rate 75 Respiratory Rate 20 Blood Pressure [Right Arm] 151/91 Blood Pressure 142/89 O2 Sat by Pulse Oximetry 98 Intake and Output: Intake & Output 04/19/21 04/20/21 04/21/21 04/22/21 23:59 23:59 23:59 23:59 Intake Total 3670 / 3670 5846 / 5846 1800 / 1800 1300 / 1300 Output Total 2744 / 2744 1405 / 1455 871 / 871 Balance 3670 / 3670 3102 / 3102 395 / 345 429 / 429 Physical Exam Oriented: Normal Eyes: Normal Ear: Normal Nose: Normal Throat: Normal Respiratory: Normal Cardiovascular: Normal Auscultation: Bowel Sounds: Normal and Decreased Tenderness: Epigastric, Mild and Other (JACKY drain noted, dressing intact ); negative Rebound and Guarding Skin: Normal Musculoskeletal: Normal Psychiatric: Normal Mood Description: Calm Affect: Normal Speech Pattern: Clear and Appropriate Laboratory and Diagnostics Result Diagrams: 04/22/21 13:18 04/22/21 05:59 Labs: Laboratory WBC 7.0 X10^3/uL (3.6-10.0) D 04/22/21 05:59 RBC 2.13 X10^6/uL (4.7-6.0) L 04/22/21 05:59 Hgb 5.8 g/dL (13.5-18.0) L* 04/22/21 13:18 Hct 16.9 % (42.0-54.0) L* 04/22/21 13:18 MCV 82.5 fL (80.0-100.0) 04/22/21 05:59 MCH 28.1 pg (27.0-34.0) 04/22/21 05:59 MCHC 34.1 g/dL (33.0-35.0) 04/22/21 05:59 RDW 16.2 % (11.6-16.5) 04/22/21 05:59 Plt Count 200 X10^3/uL (150.0-450.0) 04/22/21 05:59 Plt Count Comment Adequate (ADEQUATE) 04/21/21 05:12 MPV 7.4 fL (7.4-11.0) 04/22/21 05:59 Neut % (Auto) 80.9 % (42.0-75.0) H 04/22/21 05:59 Lymph % (Auto) 13.4 % (21.0-51.0) L 04/22/21 05:59 [place] % (Auto) 5.4 % (0.0-13.0) 04/22/21 05:59 Eos % (Auto) 0.1 % (0.9-2.9) L 04/22/21 05:59 Baso % (Auto) 0.2 % (0.2-1.0) 04/22/21 05:59 Neut # (Auto) 5.6 x10^3/uL (2.2-4.8) H 04/22/21 05:59 Lymph # (Auto) 0.9 X10^3/uL (1.3-2.9) L 04/22/21 05:59 [place] # (Auto) 0.4 x10^3/uL (0.3-0.8) 04/22/21 05:59 Eos # (Auto) 0.0 x10^3/uL (0.0-0.2) 04/22/21 05:59 Baso # (Auto) 0.0 X10^3/uL (0.0-0.1) 04/22/21 05:59 Absolute Nucleated RBC 0.1 /100WBC 04/22/21 05:59 Total Counted 100 04/21/21 05:12 Neutrophils % (Manual) 90 % (39-76) H 04/21/21 05:12 Band Neutrophils % 4 % (0-10) 04/21/21 05:12 Lymphocytes % (Manual) 5 % (13-43) L 04/21/21 05:12 Monocytes % (Manual) 1 % (4-9) L 04/21/21 05:12 Plt Morphology Comment Normal (NORMAL) 04/21/21 05:12 RBC Morphology Normal (NORMAL) 04/21/21 05:12 Sodium 132 mmol/L (136-145) L 04/22/21 05:59 Corrected Sodium 133 mmol/L (136-145) L 04/22/21 05:59 Potassium 4.9 mmol/L (3.5-5.1) 04/22/21 05:59 Chloride 98 mmol/L (98-107) 04/22/21 05:59 Carbon Dioxide 27.0 mmol/L (21-32) 04/22/21 05:59 BUN 7 mg/dL (7-18) 04/22/21 05:59 Creatinine 0.95 mg/dL (0.70-1.30) 04/22/21 05:59 Est GFR (MDRD) Af Amer > 60 (>60) 04/22/21 05:59 Est GFR (MDRD) Non-Af > 60 (>60) 04/22/21 05:59 Glucose 149 mg/dL (65-99) H 04/22/21 05:59 Calcium 7.6 mg/dL (8.5-10.1) L 04/22/21 05:59 Corrected Calcium 8.9 mg/dL (8.5-10.1) 04/22/21 05:59 Total Bilirubin 0.10 mg/dL (0.2-1.0) L 04/22/21 05:59 AST 26 Units/L (15-37) 04/22/21 05:59 ALT 29 Units/L (12-78) 04/22/21 05:59 Alkaline Phosphatase 60 Units/L (46-116) 04/22/21 05:59 Creatine Kinase 99 Units/L (39-308) 04/16/21 16:18 CK-MB (CK-2) < 1.0 ng/mL (0-4.0) 04/16/21 16:18 CK/CKMB % Calc 1.0 % (<4) 04/16/21 16:18 Troponin I 0.02 ng/mL (0-1.5) 04/16/21 16:18 Total Protein 5.2 g/dL (6.4-8.2) L 04/22/21 05:59 Albumin 2.4 g/dL (3.4-5.0) L 04/22/21 05:59 Globulin 2.8 g/dL (2.5-4.5) 04/22/21 05:59 Albumin/Globulin Ratio 0.9 Ratio (1.1-2.1) L 04/22/21 05:59 Lipase 75 Units/L (73-393) 04/16/21 16:18 Specimen Type Clean catch urine 04/16/21 18:50 Urine Color Yellow (YELLOW) 04/16/21 18:50 Urine Appearance Cloudy (CLEAR) 04/16/21 18:50 Urine pH 7.0 (5.0 - 8.0) 04/16/21 18:50 Ur Specific [place] 1.015 (1.000-1.030) 04/16/21 18:50 Urine Protein 1+ (NEGATIVE) 04/16/21 18:50 Urine Glucose (UA) Negative (NEGATIVE) 04/16/21 18:50 Urine Ketones Negative (NEGATIVE) 04/16/21 18:50 Urine Occult Blood Negative (NEGATIVE) 04/16/21 18:50 Urine Nitrite Negative (NEGATIVE) 04/16/21 18:50 Urine Bilirubin Negative (NEGATIVE) 04/16/21 18:50 Urine Urobilinogen Normal (NORMAL) 04/16/21 18:50 Ur Leukocyte Esterase Negative (NEGATIVE) 04/16/21 18:50 Urine RBC None seen /HPF (0-3) 04/16/21 18:50 Urine WBC None seen /HPF (0-5) 04/16/21 18:50 Ur Squamous Epith Cells Rare /HPF (NEGATIVE) 04/16/21 18:50 Amorphous Sediment 3+ /HPF (NEGATIVE) 04/16/21 18:50 Urine Bacteria Negative /HPF (NEGATIVE) 04/16/21 18:50 Ur Culture Indicated? No/not indicated 04/16/21 18:50 Stool Description 25g bloody hard 04/17/21 12:30 Stl Occult Blood (IFOB) Positive (NEGATIVE) A 04/17/21 12:30 SARS-CoV-2 (PCR) Negative (NEGATIVE) 04/16/21 16:14 Influenza Type A (PCR) Negative (NEGATIVE) 04/16/21 16:14 Influenza Type B (PCR) Negative (NEGATIVE) 04/16/21 16:14 RSV (PCR) Negative (NEGATIVE) 04/16/21 16:14 Tissue Pathology To follow 04/20/21 18:56 Blood Type O POSITIVE 04/20/21 17:02 Antibody Screen Negative 04/20/21 17:02 Crossmatch See Detail 04/20/21 17:02 Plan (1) S/P partial gastrectomy: Status: Acute (2) Anemia: Status: Acute Qualifiers: Anemia type: iron deficiency Iron deficiency anemia type: chronic blood loss Qualified Code(s): D50.0 - Iron deficiency anemia secondary to blood loss (chronic) (3) Volume depletion: Status: Acute (4) Peptic ulcer disease: Status: Chronic (5) Gastritis: Status: Acute Qualifiers: Chronicity: chronic Gastritis bleeding: presence of bleeding unspecified Gastritis type: unspecified gastritis Qualified Code(s): K29.50 - Unspecified chronic gastritis without bleeding (6) Duodenal bulb ulcer: Status: Acute
[2021-04-22] MEDS ORDERED: LOPRESSOR INJ 5 MG AMP IVP ONE (20:28)
[2021-04-22] MEDS ORDERED: LOPRESSOR INJ 5 MG AMP ONE (20:29)
[2021-04-22 21:00] LABS: BASOPHILS % (AUTO) 0.5 % (0.2-1.0); EOSINOPHILS % (AUTO) 0.1 % (0.9-2.9); LYMPHOCYTES # (AUTO) 1.3 X10^3/uL (1.3-2.9); LYMPHOCYTES % (AUTO) 18.6 % (21.0-51.0); MEAN CORPUSCULAR HEMOGLOBIN 29.7 pg (27.0-34.0); MEAN CORPUSCULAR HGB CONC 35.3 g/dL (33.0-35.0); MEAN CORPUSCULAR VOLUME 84.1 fL (80.0-100.0); MEAN PLATELET VOLUME 7.6 fL (7.4-11.0); MONOCYTES # (AUTO) 0.5 x10^3/uL (0.3-0.8); MONOCYTES % (AUTO) 7.2 % (0.0-13.0); NEUTROPHILS % (AUTO) 73.6 % (42.0-75.0); PLATELET COUNT 160 X10^3/uL (150.0-450.0); RED BLOOD COUNT 1.92 X10^6/uL (4.7-6.0); RED CELL DISTRIBUTION WIDTH 15.7 % (11.6-16.5); WHITE BLOOD COUNT 6.8 X10^3/uL (3.6-10.0)
[2021-04-22 21:07] LABS: HEMOGLOBIN 5.7 g/dL (13.5-18.0)
[2021-04-22 21:08] LABS: HEMATOCRIT 16.2 % (42.0-54.0)
[2021-04-22] MEDS ORDERED: NS 250 ML IV 250 ML IV ONE (21:16)
[2021-04-22] MEDS: COLACE CAP 100 MG PO SCH (21:28)
[2021-04-22] MEDS: NS 250 ML IV 250 ML IV PRN (21:29)
[2021-04-23 00:40] LABS: HEMOGLOBIN 7.2 g/dL (13.5-18.0)
[2021-04-23] MEDS: ZOFRAN INJ 4 MG VIAL IVP PRN ×2 (01:51→13:42)
[2021-04-23] MEDS: DILAUDID INJ IVP PRN ×5 (01:51→20:50)
[2021-04-23] MEDS: D5 1/2 NS 1000 ML 1,000 ML IV SCH ×2 (04:02→12:55)
[2021-04-23] MEDS: ANCEF VIAL 1 GRAM IVP SCH ×3 (05:06→21:00)
[2021-04-23] MEDS: CARAFATE PO SCH ×3 (05:07→21:05)
[2021-04-23 06:25] LABS: ALANINE AMINOTRANSFERASE 21 Units/L (12-78); ALBUMIN 2.1 g/dL (3.4-5.0); ALKALINE PHOSPHATASE 51 Units/L (46-116); ASPARTATE AMINO TRANSFERASE 22 Units/L (15-37); BLOOD UREA NITROGEN 18 mg/dL (7-18); CALCIUM 7.7 mg/dL (8.5-10.1); CARBON DIOXIDE 27.8 mmol/L (21-32); CHLORIDE 99 mmol/L (98-107); COR CA(FOR HYPOALB) 9.2 mg/dL (8.5-10.1); CREATININE 0.77 mg/dL (0.70-1.30); SODIUM 131 mmol/L (136-145); TOTAL PROTEIN 4.8 g/dL (6.4-8.2); eGFR NON BLACK RACES > 60 (>60)
[2021-04-23 06:28] LABS: BASOPHILS % (AUTO) 0.3 % (0.2-1.0); EOSINOPHILS % (AUTO) 0.2 % (0.9-2.9); LYMPHOCYTES # (AUTO) 0.8 X10^3/uL (1.3-2.9); LYMPHOCYTES % (AUTO) 10.5 % (21.0-51.0); MEAN CORPUSCULAR HEMOGLOBIN 28.6 pg (27.0-34.0); MEAN CORPUSCULAR HGB CONC 34.8 g/dL (33.0-35.0); MEAN CORPUSCULAR VOLUME 82.4 fL (80.0-100.0); MEAN PLATELET VOLUME 8.2 fL (7.4-11.0); MONOCYTES # (AUTO) 0.5 x10^3/uL (0.3-0.8); MONOCYTES % (AUTO) 6.8 % (0.0-13.0); NEUTROPHILS % (AUTO) 82.2 % (42.0-75.0); PLATELET COUNT 151 X10^3/uL (150.0-450.0); RED BLOOD COUNT 2.34 X10^6/uL (4.7-6.0); RED CELL DISTRIBUTION WIDTH 15.7 % (11.6-16.5); WHITE BLOOD COUNT 7.3 X10^3/uL (3.6-10.0)
[2021-04-23 06:41] LABS: HEMATOCRIT 19.3 % (42.0-54.0); HEMOGLOBIN 6.7 g/dL (13.5-18.0)
--- NOTE | 2021-04-23 08:48 | DR.PROGNOT ---
Hospital Progress Notes - Progress Note for Day of: Progress Note Date: 04/23/21 - Chief Complaint Chief Complaint: PO gastrectomy for bleeding duodenal ulcer day 3. had 2 units of PC in the past 24 h . last Hgb 6.7. minimal drainage in JACKY . no rectal bleeding . moderate incisional pain .. good urine out put. O2 sat 99 . stable VS - Past Medical Family Social History Past Med/Fam/Surg Hx: No changes since H&P Allergies: Allergies No Known Drug Allergies Allergy (Verified 11/20/20 11:47) - Review Of Systems ROS: No change since H&P - Vital Signs Vital Signs: Temperature 98.5 F Pulse Rate [Apical] 105 Pulse Rate 75 Respiratory Rate 20 Blood Pressure [Right Arm] 116/71 Blood Pressure 126/79 O2 Sat by Pulse Oximetry 100 - Physical Exam Oriented: Normal Eyes: Normal Ear: Normal Nose: Normal Throat: Normal Respiratory: Normal Cardiovascular: Normal GI:Auscultation: Decreased GI:Palpation: Normal GI: Tenderness: Epigastric, Mild, Other (soft abdomen . no infection . BS+_ still hypoactive ..). negative: Rebound, Guarding Skin: Normal Musculoskeletal: Normal Psychiatric: Normal Mood Description: Calm Affect: Normal Speech Pattern: Clear, Appropriate - Laboratory and Diagnostics Result Diagrams: 04/23/21 05:29 04/23/21 05:29 Labs: Laboratory WBC 7.3 X10^3/uL (3.6-10.0) 04/23/21 05:29 RBC 2.34 X10^6/uL (4.7-6.0) L 04/23/21 05:29 Hgb 6.7 g/dL (13.5-18.0) L* 04/23/21 05:29 Hct 19.3 % (42.0-54.0) L* 04/23/21 05:29 MCV 82.4 fL (80.0-100.0) 04/23/21 05:29 MCH 28.6 pg (27.0-34.0) 04/23/21 05:29 MCHC 34.8 g/dL (33.0-35.0) 04/23/21 05:29 RDW 15.7 % (11.6-16.5) 04/23/21 05:29 Plt Count 151 X10^3/uL (150.0-450.0) 04/23/21 05:29 Plt Count Comment Adequate (ADEQUATE) 04/21/21 05:12 MPV 8.2 fL (7.4-11.0) 04/23/21 05:29 Neut % (Auto) 82.2 % (42.0-75.0) H 04/23/21 05:29 Lymph % (Auto) 10.5 % (21.0-51.0) L 04/23/21 05:29 Carbon % (Auto) 6.8 % (0.0-13.0) 04/23/21 05:29 Eos % (Auto) 0.2 % (0.9-2.9) L 04/23/21 05:29 Baso % (Auto) 0.3 % (0.2-1.0) 04/23/21 05:29 Neut # (Auto) 6.0 x10^3/uL (2.2-4.8) H 04/23/21 05:29 Lymph # (Auto) 0.8 X10^3/uL (1.3-2.9) L 04/23/21 05:29 [place] # (Auto) 0.5 x10^3/uL (0.3-0.8) 04/23/21 05:29 Eos # (Auto) 0.0 x10^3/uL (0.0-0.2) 04/23/21 05:29 Baso # (Auto) 0.0 X10^3/uL (0.0-0.1) 04/23/21 05:29 Absolute Nucleated RBC 0.0 /100WBC 04/23/21 05:29 Total Counted 100 04/21/21 05:12 Neutrophils % (Manual) 90 % (39-76) H 04/21/21 05:12 Band Neutrophils % 4 % (0-10) 04/21/21 05:12 Lymphocytes % (Manual) 5 % (13-43) L 04/21/21 05:12 Monocytes % (Manual) 1 % (4-9) L 04/21/21 05:12 Plt Morphology Comment Normal (NORMAL) 04/21/21 05:12 RBC Morphology Normal (NORMAL) 04/21/21 05:12 Sodium 131 mmol/L (136-145) L 04/23/21 05:29 Corrected Sodium TNP 04/23/21 05:29 Potassium 5.0 mmol/L (3.5-5.1) 04/23/21 05:29 Chloride 99 mmol/L (98-107) 04/23/21 05:29 Carbon Dioxide 27.8 mmol/L (21-32) 04/23/21 05:29 BUN 18 mg/dL (7-18) 04/23/21 05:29 Creatinine 0.77 mg/dL (0.70-1.30) 04/23/21 05:29 Est GFR (MDRD) Af Amer > 60 (>60) 04/23/21 05:29 Est GFR (MDRD) Non-Af > 60 (>60) 04/23/21 05:29 Glucose 110 mg/dL (65-99) H 04/23/21 05:29 Calcium 7.7 mg/dL (8.5-10.1) L 04/23/21 05:29 Corrected Calcium 9.2 mg/dL (8.5-10.1) 04/23/21 05:29 Total Bilirubin 0.10 mg/dL (0.2-1.0) L 04/23/21 05:29 AST 22 Units/L (15-37) 04/23/21 05:29 ALT 21 Units/L (12-78) 04/23/21 05:29 Alkaline Phosphatase 51 Units/L (46-116) 04/23/21 05:29 Creatine Kinase 99 Units/L (39-308) 04/16/21 16:18 CK-MB (CK-2) < 1.0 ng/mL (0-4.0) 04/16/21 16:18 CK/CKMB % Calc 1.0 % (<4) 04/16/21 16:18 Troponin I 0.02 ng/mL (0-1.5) 04/16/21 16:18 Total Protein 4.8 g/dL (6.4-8.2) L 04/23/21 05:29 Albumin 2.1 g/dL (3.4-5.0) L 04/23/21 05:29 Globulin 2.7 g/dL (2.5-4.5) 04/23/21 05:29 Albumin/Globulin Ratio 0.8 Ratio (1.1-2.1) L 04/23/21 05:29 Lipase 75 Units/L (73-393) 04/16/21 16:18 Specimen Type Clean catch urine 04/16/21 18:50 Urine Color Yellow (YELLOW) 04/16/21 18:50 Urine Appearance Cloudy (CLEAR) 04/16/21 18:50 Urine pH 7.0 (5.0 - 8.0) 04/16/21 18:50 Ur Specific Christine 1.015 (1.000-1.030) 04/16/21 18:50 Urine Protein 1+ (NEGATIVE) 04/16/21 18:50 Urine Glucose (UA) Negative (NEGATIVE) 04/16/21 18:50 Urine Ketones Negative (NEGATIVE) 04/16/21 18:50 Urine Occult Blood Negative (NEGATIVE) 04/16/21 18:50 Urine Nitrite Negative (NEGATIVE) 04/16/21 18:50 Urine Bilirubin Negative (NEGATIVE) 04/16/21 18:50 Urine Urobilinogen Normal (NORMAL) 04/16/21 18:50 Ur Leukocyte Esterase Negative (NEGATIVE) 04/16/21 18:50 Urine RBC None seen /HPF (0-3) 04/16/21 18:50 Urine WBC None seen /HPF (0-5) 04/16/21 18:50 Ur Squamous Epith Cells Rare /HPF (NEGATIVE) 04/16/21 18:50 Amorphous Sediment 3+ /HPF (NEGATIVE) 04/16/21 18:50 Urine Bacteria Negative /HPF (NEGATIVE) 04/16/21 18:50 Ur Culture Indicated? No/not indicated 04/16/21 18:50 Stool Description 25g bloody hard 04/17/21 12:30 Stl Occult Blood (IFOB) Positive (NEGATIVE) A 04/17/21 12:30 SARS-CoV-2 (PCR) Negative (NEGATIVE) 04/16/21 16:14 Influenza Type A (PCR) Negative (NEGATIVE) 04/16/21 16:14 Influenza Type B (PCR) Negative (NEGATIVE) 04/16/21 16:14 RSV (PCR) Negative (NEGATIVE) 04/16/21 16:14 Tissue Pathology To follow 04/20/21 18:56 Blood Type O POSITIVE 04/20/21 17:02 Antibody Screen Negative 04/20/21 17:02 Crossmatch See Detail 04/20/21 17:02 - Assessment and Plan 1: recurrent bleeding chronic duodenal ulcer .. s/p partial gasterectomy . Bilroth 11 retrocolic anastomosis .. blood loss anemia .( no active bleeding now ). same PO care . OOB .. incentive spirometer . . . on full liquid now . transfuse one unit of PC today .. - Problem Patient Problems: Patient Problems Anemia (Acute) D64.9 Syncope (Acute) R55 Volume depletion (Acute) E86.9 Peptic ulcer disease (Chronic) K27.9
[2021-04-23] MEDS: PEPCID 20 MG IV PREMIX* 20 MG/50 ML BAG IV SCH ×3 (09:21→20:50)
[2021-04-23] MEDS: PROTONIX INJ 40 MG VIAL IVP SCH ×2 (09:22→20:51)
[2021-04-23] MEDS: MILK OF MAGNESIA PO SCH ×2 (09:45→20:53)
--- NOTE | 2021-04-23 12:59 | PCM.PROG ---
Progress Note Progress Note for Day of Date of Exam: 04/23/21 Subjective Subjective: POD# 3 Patient seen at bedside. He reports doing well. He was able to tolerate clears yesterday. No BM, denies active bleeding. He did receive 2 units of PRBCs. Hgb this morning is 6.7. S/P EGD: showed bleeding duodenal ulcer and also chronic scarring from previous ulcers. There were several bleeding vessels within the ulcer S/P Laparotomy and Partial gastrectomy with Billroth II retrocolic anastomosis. Labs: Hgb:6.7 Plt 151 K:5.0 BUN/Cr: 18/0.77 Plan: Transfuse one more unit PRBC today, monitor H/H. Patient denies active bleeding. Follow surgery recommendations, advanced to full liquids. Continue pain control. Continue dressing changes, monitor JACKY drain output. Monitor AM labs and imaging. Advised patient to ambulate in the room as tolerated. Past Medical Family Social History Past Med/Fam/Surg Hx: No changes since H&P Allergies: Allergies No Known Drug Allergies Allergy (Verified 11/20/20 11:47) Review of Systems ROS: No change since H&P Vital Signs and I&O's Vital Signs: Temperature 98.7 F Pulse Rate [Apical] 107 Pulse Rate 75 Respiratory Rate 20 Blood Pressure [Right Arm] 142/92 Blood Pressure 126/79 O2 Sat by Pulse Oximetry 100 Intake and Output: Intake & Output 04/20/21 04/21/21 04/22/21 04/23/21 23:59 23:59 23:59 23:59 Intake Total 5846 / 5846 1800 / 1800 7016 / 7016 1200 / 1200 Output Total 2744 / 2744 1405 / 1455 931 / 931 210 / 210 Balance 3102 / 3102 395 / 345 6085 / 6085 990 / 990 Physical Exam Oriented: Normal Eyes: Normal Ear: Normal Nose: Normal Throat: Normal Respiratory: Normal Cardiovascular: Normal Auscultation: Bowel Sounds: Decreased Tenderness: Epigastric, Mild and Other (dressing intact, JACKY drain noted, decreased BS+, no signs of infection ); negative Rebound and Guarding Skin: Normal Musculoskeletal: Normal Psychiatric: Normal Mood Description: Calm Affect: Normal Speech Pattern: Clear and Appropriate Laboratory and Diagnostics Result Diagrams: 04/23/21 05:29 04/23/21 05:29 Labs: Laboratory WBC 7.3 X10^3/uL (3.6-10.0) 04/23/21 05:29 RBC 2.34 X10^6/uL (4.7-6.0) L 04/23/21 05:29 Hgb 6.7 g/dL (13.5-18.0) L* 04/23/21 05:29 Hct 19.3 % (42.0-54.0) L* 04/23/21 05:29 MCV 82.4 fL (80.0-100.0) 04/23/21 05:29 MCH 28.6 pg (27.0-34.0) 04/23/21 05:29 MCHC 34.8 g/dL (33.0-35.0) 04/23/21 05:29 RDW 15.7 % (11.6-16.5) 04/23/21 05:29 Plt Count 151 X10^3/uL (150.0-450.0) 04/23/21 05:29 Plt Count Comment Adequate (ADEQUATE) 04/21/21 05:12 MPV 8.2 fL (7.4-11.0) 04/23/21 05:29 Neut % (Auto) 82.2 % (42.0-75.0) H 04/23/21 05:29 Lymph % (Auto) 10.5 % (21.0-51.0) L 04/23/21 05:29 [place] % (Auto) 6.8 % (0.0-13.0) 04/23/21 05:29 Eos % (Auto) 0.2 % (0.9-2.9) L 04/23/21 05:29 Baso % (Auto) 0.3 % (0.2-1.0) 04/23/21 05:29 Neut # (Auto) 6.0 x10^3/uL (2.2-4.8) H 04/23/21 05:29 Lymph # (Auto) 0.8 X10^3/uL (1.3-2.9) L 04/23/21 05:29 [place] # (Auto) 0.5 x10^3/uL (0.3-0.8) 04/23/21 05:29 Eos # (Auto) 0.0 x10^3/uL (0.0-0.2) 04/23/21 05:29 Baso # (Auto) 0.0 X10^3/uL (0.0-0.1) 04/23/21 05:29 Absolute Nucleated RBC 0.0 /100WBC 04/23/21 05:29 Total Counted 100 04/21/21 05:12 Neutrophils % (Manual) 90 % (39-76) H 04/21/21 05:12 Band Neutrophils % 4 % (0-10) 04/21/21 05:12 Lymphocytes % (Manual) 5 % (13-43) L 04/21/21 05:12 Monocytes % (Manual) 1 % (4-9) L 04/21/21 05:12 Plt Morphology Comment Normal (NORMAL) 04/21/21 05:12 RBC Morphology Normal (NORMAL) 04/21/21 05:12 Sodium 131 mmol/L (136-145) L 04/23/21 05:29 Corrected Sodium TNP 04/23/21 05:29 Potassium 5.0 mmol/L (3.5-5.1) 04/23/21 05:29 Chloride 99 mmol/L (98-107) 04/23/21 05:29 Carbon Dioxide 27.8 mmol/L (21-32) 04/23/21 05:29 BUN 18 mg/dL (7-18) 04/23/21 05:29 Creatinine 0.77 mg/dL (0.70-1.30) 04/23/21 05:29 Est GFR (MDRD) Af Amer > 60 (>60) 04/23/21 05:29 Est GFR (MDRD) Non-Af > 60 (>60) 04/23/21 05:29 Glucose 110 mg/dL (65-99) H 04/23/21 05:29 Calcium 7.7 mg/dL (8.5-10.1) L 04/23/21 05:29 Corrected Calcium 9.2 mg/dL (8.5-10.1) 04/23/21 05:29 Total Bilirubin 0.10 mg/dL (0.2-1.0) L 04/23/21 05:29 AST 22 Units/L (15-37) 04/23/21 05:29 ALT 21 Units/L (12-78) 04/23/21 05:29 Alkaline Phosphatase 51 Units/L (46-116) 04/23/21 05:29 Creatine Kinase 99 Units/L (39-308) 04/16/21 16:18 CK-MB (CK-2) < 1.0 ng/mL (0-4.0) 04/16/21 16:18 CK/CKMB % Calc 1.0 % (<4) 04/16/21 16:18 Troponin I 0.02 ng/mL (0-1.5) 04/16/21 16:18 Total Protein 4.8 g/dL (6.4-8.2) L 04/23/21 05:29 Albumin 2.1 g/dL (3.4-5.0) L 04/23/21 05:29 Globulin 2.7 g/dL (2.5-4.5) 04/23/21 05:29 Albumin/Globulin Ratio 0.8 Ratio (1.1-2.1) L 04/23/21 05:29 Lipase 75 Units/L (73-393) 04/16/21 16:18 Specimen Type Clean catch urine 04/16/21 18:50 Urine Color Yellow (YELLOW) 04/16/21 18:50 Urine Appearance Cloudy (CLEAR) 04/16/21 18:50 Urine pH 7.0 (5.0 - 8.0) 04/16/21 18:50 Ur Specific [place] 1.015 (1.000-1.030) 04/16/21 18:50 Urine Protein 1+ (NEGATIVE) 04/16/21 18:50 Urine Glucose (UA) Negative (NEGATIVE) 04/16/21 18:50 Urine Ketones Negative (NEGATIVE) 04/16/21 18:50 Urine Occult Blood Negative (NEGATIVE) 04/16/21 18:50 Urine Nitrite Negative (NEGATIVE) 04/16/21 18:50 Urine Bilirubin Negative (NEGATIVE) 04/16/21 18:50 Urine Urobilinogen Normal (NORMAL) 04/16/21 18:50 Ur Leukocyte Esterase Negative (NEGATIVE) 04/16/21 18:50 Urine RBC None seen /HPF (0-3) 04/16/21 18:50 Urine WBC None seen /HPF (0-5) 04/16/21 18:50 Ur Squamous Epith Cells Rare /HPF (NEGATIVE) 04/16/21 18:50 Amorphous Sediment 3+ /HPF (NEGATIVE) 04/16/21 18:50 Urine Bacteria Negative /HPF (NEGATIVE) 04/16/21 18:50 Ur Culture Indicated? No/not indicated 04/16/21 18:50 Stool Description 25g bloody hard 04/17/21 12:30 Stl Occult Blood (IFOB) Positive (NEGATIVE) A 04/17/21 12:30 SARS-CoV-2 (PCR) Negative (NEGATIVE) 04/16/21 16:14 Influenza Type A (PCR) Negative (NEGATIVE) 04/16/21 16:14 Influenza Type B (PCR) Negative (NEGATIVE) 04/16/21 16:14 RSV (PCR) Negative (NEGATIVE) 04/16/21 16:14 Tissue Pathology To follow 04/20/21 18:56 Blood Type O POSITIVE 04/20/21 17:02 Antibody Screen Negative 04/20/21 17:02 Crossmatch See Detail 04/20/21 17:02 Plan (1) S/P partial gastrectomy: Status: Acute (2) Anemia: Status: Acute Qualifiers: Anemia type: iron deficiency Iron deficiency anemia type: chronic blood loss Qualified Code(s): D50.0 - Iron deficiency anemia secondary to blood loss (chronic) (3) Volume depletion: Status: Acute (4) Peptic ulcer disease: Status: Chronic (5) Gastritis: Status: Acute Qualifiers: Chronicity: chronic Gastritis bleeding: presence of bleeding unspecified Gastritis type: unspecified gastritis Qualified Code(s): K29.50 - Unspecified chronic gastritis without bleeding (6) Duodenal bulb ulcer: Status: Acute
[2021-04-23 13:30] LABS: HEMATOCRIT 24.2 % (42.0-54.0); HEMOGLOBIN 8.5 g/dL (13.5-18.0)
[2021-04-23 20:46] LABS: HEMATOCRIT 18.9 % (42.0-54.0); HEMOGLOBIN 6.6 g/dL (13.5-18.0)
[2021-04-23] MEDS: COLACE CAP 100 MG PO SCH (20:50)
[2021-04-23 21:07] LABS: CKMB % 0.6 % (<4); CREATINE KINASE MB 1.4 ng/mL (0-4.0); TROPONIN I 0.02 ng/mL (0-1.5)
[2021-04-23] MEDS ORDERED: NS 250 ML IV 250 ML IV ONE (22:33)
[2021-04-23] MEDS: NS 250 ML IV 250 ML IV PRN (22:45)
[2021-04-24] MEDS: DILAUDID INJ IVP PRN ×3 (00:05→06:05)
[2021-04-24 04:25] VITALS: BP 133/88
[2021-04-24] MEDS: ANCEF VIAL 1 GRAM IVP SCH (05:21)
[2021-04-24] MEDS: CARAFATE PO SCH (05:21)
[2021-04-24] MEDS: D5 1/2 NS 1000 ML 1,000 ML IV SCH ×2 (06:00)
[2021-04-24 06:30] LABS: BASOPHILS % (AUTO) 0.5 % (0.2-1.0); EOSINOPHILS % (AUTO) 0.5 % (0.9-2.9); HEMATOCRIT 26.7 % (42.0-54.0); LYMPHOCYTES % (AUTO) 15.5 % (21.0-51.0); MEAN CORPUSCULAR HEMOGLOBIN 30.6 pg (27.0-34.0); MEAN CORPUSCULAR HGB CONC 36.3 g/dL (33.0-35.0); MEAN CORPUSCULAR VOLUME 84.2 fL (80.0-100.0); MEAN PLATELET VOLUME 7.4 fL (7.4-11.0); MONOCYTES # (AUTO) 0.6 x10^3/uL (0.3-0.8); MONOCYTES % (AUTO) 9.7 % (0.0-13.0); NEUTROPHILS # (AUTO) 4.9 x10^3/uL (2.2-4.8); NEUTROPHILS % (AUTO) 73.8 % (42.0-75.0); PLATELET COUNT 93 X10^3/uL (150.0-450.0); RED BLOOD COUNT 3.18 X10^6/uL (4.7-6.0); WHITE BLOOD COUNT 6.6 X10^3/uL (3.6-10.0)
[2021-04-24 06:43] LABS: HEMOGLOBIN 9.7 g/dL (13.5-18.0)
[2021-04-24 06:53] LABS: ALANINE AMINOTRANSFERASE 20 Units/L (12-78); ALBUMIN 1.9 g/dL (3.4-5.0); ALKALINE PHOSPHATASE 47 Units/L (46-116); ASPARTATE AMINO TRANSFERASE 23 Units/L (15-37); BLOOD UREA NITROGEN 18 mg/dL (7-18); CALCIUM 7.2 mg/dL (8.5-10.1); CHLORIDE 98 mmol/L (98-107); COR CA(FOR HYPOALB) 8.9 mg/dL (8.5-10.1); CREATININE 0.64 mg/dL (0.70-1.30); SODIUM 129 mmol/L (136-145); TOTAL PROTEIN 4.4 g/dL (6.4-8.2); eGFR NON BLACK RACES > 60 (>60)
[2021-04-24] MEDS ORDERED: ADRENALINE CHL INJ (ABBOJECT) IVP ONE ×2 (06:55→06:58)
[2021-04-24] MEDS ORDERED: LEVOPHED INJ ONE (07:11)
[2021-04-24] MEDS ORDERED: D5W 250 ML IV 250 ML IV ONE (07:14)
[2021-04-24] MEDS ORDERED: NS 500 ML IV 500 ML IV ONE (07:18)
[2021-04-24] MEDS ORDERED: MORPHINE SULFATE INJ 2 MG INJ IVP ONE (07:33)
[2021-04-24] MEDS ORDERED: MORPHINE SULFATE INJ 2 MG INJ ONE ×2 (07:33→09:01)
[2021-04-24] MEDS: ZOFRAN INJ 4 MG VIAL IVP PRN (07:39)
[2021-04-24] MEDS ORDERED: DOPAMINE IV PREMIX 400 MG/250 ML 400 MG/250 ML BAG IV ONE (07:44)
[2021-04-24] MEDS ORDERED: DOPAMINE IV PREMIX 400 MG/250 ML 400 MG/250 ML BAG IV PRN (07:46)
--- NOTE | 2021-04-24 08:00 | RAD ---
HISTORYCENTRAL LINE PLACEMENT, GI BLEEDSTUDYCHEST, 1 [id number]/2021.TECHNIQUEAP view of the chestFINDINGSRight IJ central line likely terminates just within the right atrium. Consider 2 cm retraction for more optimal positioning. Cardiac and mediastinal contours are within normal limits. Left perihilar subsegmental atelectasis. No pleural effusion or pneumothorax.IMPRESSIONConsider 2 cm retraction of right IJ central line for more optimal positioning.Electronically signed by: Terry Alvarez (Apr 24, 2021 07:58:46)
[2021-04-24 08:35] LABS: BASOPHILS % (AUTO) 0.3 % (0.2-1.0); EOSINOPHILS % (AUTO) 0.8 % (0.9-2.9); LYMPHOCYTES # (AUTO) 0.8 X10^3/uL (1.3-2.9); LYMPHOCYTES % (AUTO) 25.4 % (21.0-51.0); MEAN CORPUSCULAR HEMOGLOBIN 29.9 pg (27.0-34.0); MEAN CORPUSCULAR HGB CONC 34.2 g/dL (33.0-35.0); MEAN CORPUSCULAR VOLUME 87.4 fL (80.0-100.0); MEAN PLATELET VOLUME 7.9 fL (7.4-11.0); MONOCYTES # (AUTO) 0.1 x10^3/uL (0.3-0.8); MONOCYTES % (AUTO) 2.3 % (0.0-13.0); NEUTROPHILS # (AUTO) 2.3 x10^3/uL (2.2-4.8); NEUTROPHILS % (AUTO) 71.2 % (42.0-75.0); PLATELET COUNT 55 X10^3/uL (150.0-450.0); RED BLOOD COUNT 2.25 X10^6/uL (4.7-6.0); RED CELL DISTRIBUTION WIDTH 14.2 % (11.6-16.5); WHITE BLOOD COUNT 3.3 X10^3/uL (3.6-10.0)
[2021-04-24 08:42] LABS: HEMATOCRIT 19.7 % (42.0-54.0); HEMOGLOBIN 6.7 g/dL (13.5-18.0)
--- NOTE | 2021-04-24 08:58 | DR.UPDATE ---
H&P Update History and Physical Update: History and Physical reviewed and patient examined. Changes noted: NO Yes with the following:central line for fluid resuscitation H&P Reviewed: Yes Patient was examined?: Yes Procedures (ALL) - Central Line Placement PCM.CLCO: verbal consent (emergency) Time out performed: Yes Patient placed pm monitor/pulse ox: Yes MD prep: mask, gown, gloves, other Centrial line prep: chlorhexidine scrub, sterile drapes applied Local anesthsia used: lidocane 1% Ultrasound used for placement: Yes (right ij id'd via u/s and cannulation visualized) Central line lumen ininserted: triple Post procedure: sutured in place, good blood return, all ports aspirated, flushed,capped, sterile dressing applied Post procedure xray: tip oc catheter in good position, no pneumothorax seen Complications: none
[2021-04-24] MEDS ORDERED: D5 NS 1000 ML 1,000 ML IV SCH (09:00)
[2021-04-24 09:02] LABS: ALANINE AMINOTRANSFERASE 13 Units/L (12-78); ALBUMIN 1.1 g/dL (3.4-5.0); ALKALINE PHOSPHATASE 31 Units/L (46-116); ASPARTATE AMINO TRANSFERASE 21 Units/L (15-37); BLOOD UREA NITROGEN 21 mg/dL (7-18); CARBON DIOXIDE 21.7 mmol/L (21-32); CHLORIDE 95 mmol/L (98-107); CKMB % 1.1 % (<4); COR CA(FOR HYPOALB) 8.3 mg/dL (8.5-10.1); COR NA(FOR HYPERGLY) 133 mmol/L (136-145); CREATINE KINASE 181 Units/L (39-308); CREATINE KINASE MB 1.9 ng/mL (0-4.0); CREATININE 1.14 mg/dL (0.70-1.30); SODIUM 126 mmol/L (136-145); TOTAL PROTEIN 2.7 g/dL (6.4-8.2); TROPONIN I 0.13 ng/mL (0-1.5); eGFR NON BLACK RACES > 60 (>60)
[2021-04-24] MEDS: MORPHINE SULFATE INJ 2 MG INJ IVP ONE ×2 (09:03→16:32)
[2021-04-24] MEDS ORDERED: LEVOPHED INJ 8 MG in D5W 250 ML IV 242 ML IV PRN (09:45)
[2021-04-24] MEDS: PEPCID 20 MG IV PREMIX* 20 MG/50 ML BAG IV SCH (11:05)
[2021-04-24] MEDS: PROTONIX INJ 40 MG VIAL IVP SCH (11:05)
[2021-04-24] MEDS: MILK OF MAGNESIA PO SCH (11:06)
[2021-04-24] MEDS ORDERED: VERSED 50 MG in NS 50 ML IV 40 ML IV PRN (11:54)
[2021-04-24] MEDS ORDERED: VERSED ONE (11:54)
[2021-04-24] MEDS ORDERED: VERSED IVP ONE (11:55)
--- NOTE | 2021-04-24 12:00 | PCM.PROG ---
Progress Note Progress Note for Day of Date of Exam: 04/24/21 Subjective Subjective: POD# 4 Patient seen at bedside, earlier this morning around 7am, patient was noted to have HR of 170 and became diaphoretic with bleeding from his rectum, nose and mouth. Patient lost pulse and CPR was started. He received 2 rounds of epi and ROSC was achieved. He was intubated during the code but was wide awake after and was extubated. Patient's BP dropped and was started on Dopamine drip. He is currently awake and able to answer simple questions. His Hgb last night dropped to 6.7 and he received 2 units overnight. His Hgb this AM was 9.[address] this episode[address] Dr Catherine examined the patient and ordered 2 units of PRBCs stat. Central line was also placed this morning. Family at bedside updated on patient's current condition. S/P EGD: showed bleeding duodenal ulcer and also chronic scarring from previous ulcers. There were several bleeding vessels within the ulcer S/P Laparotomy and Partial gastrectomy with Billroth II retrocolic anastomosis. Labs: Hgb:6.7 Plt 55 Na: 126 Cl 95 BUN/Cr: 21/1.14 Glucose 384 INR 1.62 Trop: 0.02 0.13 Total PRBC's transfused: 7 units during this admission Plan: Patient has received one unit PRBCs stat this morning, 2nd bag about to s tart. Dr. Catherine also ordered FFP and platelets. Wean dopamine as tolerated to keep MAP>65, monitor respiratory status. Monitor H/H, check lactic acid. closely. On exam, patient has decreased bowel sounds, dressing is intact and JACKY drain in place with ~20 cc output. Continue hydration, switch to D5 with NS at 150cc/hr. Continue IV medications including protonix. Patient did receive a dose of morphine. Patient remains in a critical condition. Continue to stabilize patient and possible transfer as per Dr. Catherine. Time spent for clinical assessment, reviewing labs and imaging, physical exam, decision making and documentation greater than 75 mins. Past Medical Family Social History Past Med/Fam/Surg Hx: No changes since H&P Allergies: Allergies No Known Drug Allergies Allergy (Verified 11/20/20 11:47) Review of Systems ROS: No change since H&P Vital Signs and I&O's Vital Signs: Temperature 98.4 F Pulse Rate [Apical] 94 Pulse Rate 75 Respiratory Rate 20 Blood Pressure [Right Arm] 133/88 Blood Pressure 126/79 O2 Sat by Pulse Oximetry 95 Intake and Output: Intake & Output 04/21/21 04/22/21 04/23/21 04/24/21 23:59 23:59 23:59 23:59 Intake Total 1800 / 1800 7016 / 7016 4286 / 4286 1603 / 1603 Output Total 1405 / 1455 931 / 931 990 / 990 Balance 395 / 345 6085 / 6085 3296 / 3296 1573 / 1573 Physical Exam Oriented: Normal Eyes: Normal Ear: Normal Nose: Normal Throat: Normal Respiratory: Normal Cardiovascular: Normal Auscultation: Bowel Sounds: Decreased Tenderness: Epigastric, Mild and Other (dressing intact, JACKY drain noted, decreased BS+, no signs of infection ); negative Rebound and Guarding Skin: Normal Musculoskeletal: Normal Psychiatric: Normal Mood Description: Calm Affect: Normal Speech Pattern: Clear and Appropriate Laboratory and Diagnostics Result Diagrams: 04/24/21 11:51 04/24/21 08:14 Labs: Laboratory WBC 3.3 X10^3/uL (3.6-10.0) L 04/24/21 08:14 RBC 2.25 X10^6/uL (4.7-6.0) L 04/24/21 08:14 Hgb 6.7 g/dL (13.5-18.0) L* D 04/24/21 08:14 Hct 19.7 % (42.0-54.0) L* 04/24/21 08:14 MCV 87.4 fL (80.0-100.0) 04/24/21 08:14 MCH 29.9 pg (27.0-34.0) 04/24/21 08:14 MCHC 34.2 g/dL (33.0-35.0) 04/24/21 08:14 RDW 14.2 % (11.6-16.5) 04/24/21 08:14 Plt Count 55 X10^3/uL (150.0-450.0) L 04/24/21 08:14 Plt Count Comment Adequate (ADEQUATE) 04/21/21 05:12 MPV 7.9 fL (7.4-11.0) 04/24/21 08:14 Neut % (Auto) 71.2 % (42.0-75.0) 04/24/21 08:14 Lymph % (Auto) 25.4 % (21.0-51.0) 04/24/21 08:14 [place] % (Auto) 2.3 % (0.0-13.0) 04/24/21 08:14 Eos % (Auto) 0.8 % (0.9-2.9) L 04/24/21 08:14 Baso % (Auto) 0.3 % (0.2-1.0) 04/24/21 08:14 Neut # (Auto) 2.3 x10^3/uL (2.2-4.8) 04/24/21 08:14 Lymph # (Auto) 0.8 X10^3/uL (1.3-2.9) L 04/24/21 08:14 [place] # (Auto) 0.1 x10^3/uL (0.3-0.8) L 04/24/21 08:14 Eos # (Auto) 0.0 x10^3/uL (0.0-0.2) 04/24/21 08:14 Baso # (Auto) 0.0 X10^3/uL (0.0-0.1) 04/24/21 08:14 Absolute Nucleated RBC 0.2 /100WBC 04/24/21 08:14 Total Counted 100 04/21/21 05:12 Neutrophils % (Manual) 90 % (39-76) H 04/21/21 05:12 Band Neutrophils % 4 % (0-10) 04/21/21 05:12 Lymphocytes % (Manual) 5 % (13-43) L 04/21/21 05:12 Monocytes % (Manual) 1 % (4-9) L 04/21/21 05:12 Plt Morphology Comment Normal (NORMAL) 04/21/21 05:12 RBC Morphology Normal (NORMAL) 04/21/21 05:12 PT 18.5 SECONDS (11.8-14.3) 04/24/21 08:14 INR Target Range - 04/24/21 08:14 INR 1.62 (0.8-1.3) H 04/24/21 08:14 APTT 41.2 SECONDS (22.9-36.5) H 04/24/21 08:14 PTT Comment - 04/24/21 08:14 Sodium 126 mmol/L (136-145) L 04/24/21 08:14 Corrected Sodium 133 mmol/L (136-145) L 04/24/21 08:14 Potassium 4.0 mmol/L (3.5-5.1) 04/24/21 08:14 Chloride 95 mmol/L (98-107) L 04/24/21 08:14 Carbon Dioxide 21.7 mmol/L (21-32) 04/24/21 08:14 BUN 21 mg/dL (7-18) H 04/24/21 08:14 Creatinine 1.14 mg/dL (0.70-1.30) 04/24/21 08:14 Est GFR (MDRD) Af Amer > 60 (>60) 04/24/21 08:14 Est GFR (MDRD) Non-Af > 60 (>60) 04/24/21 08:14 Glucose 384 mg/dL (65-99) H 04/24/21 08:14 POC Glucose (mg/dL) 123 mg/dL (65-99) H 04/23/21 20:02 Calcium 6.0 mg/dL (8.5-10.1) L* 04/24/21 08:14 Corrected Calcium 8.3 mg/dL (8.5-10.1) L 04/24/21 08:14 Total Bilirubin 0.20 mg/dL (0.2-1.0) 04/24/21 08:14 AST 21 Units/L (15-37) 04/24/21 08:14 ALT 13 Units/L (12-78) 04/24/21 08:14 Alkaline Phosphatase 31 Units/L (46-116) L 04/24/21 08:14 Creatine Kinase 181 Units/L (39-308) 04/24/21 08:14 CK-MB (CK-2) 1.9 ng/mL (0-4.0) 04/24/21 08:14 CK/CKMB % Calc 1.1 % (<4) 04/24/21 08:14 Troponin I 0.13 ng/mL (0-1.5) 04/24/21 08:14 Total Protein 2.7 g/dL (6.4-8.2) L 04/24/21 08:14 Albumin 1.1 g/dL (3.4-5.0) L 04/24/21 08:14 Globulin 1.6 g/dL (2.5-4.5) L 04/24/21 08:14 Albumin/Globulin Ratio 0.7 Ratio (1.1-2.1) L 04/24/21 08:14 Lipase 75 Units/L (73-393) 04/16/21 16:18 Specimen Type Clean catch urine 04/16/21 18:50 Urine Color Yellow (YELLOW) 04/16/21 18:50 Urine Appearance Cloudy (CLEAR) 04/16/21 18:50 Urine pH 7.0 (5.0 - 8.0) 04/16/21 18:50 Ur Specific [place] 1.015 (1.000-1.030) 04/16/21 18:50 Urine Protein 1+ (NEGATIVE) 04/16/21 18:50 Urine Glucose (UA) Negative (NEGATIVE) 04/16/21 18:50 Urine Ketones Negative (NEGATIVE) 04/16/21 18:50 Urine Occult Blood Negative (NEGATIVE) 04/16/21 18:50 Urine Nitrite Negative (NEGATIVE) 04/16/21 18:50 Urine Bilirubin Negative (NEGATIVE) 04/16/21 18:50 Urine Urobilinogen Normal (NORMAL) 04/16/21 18:50 Ur Leukocyte Esterase Negative (NEGATIVE) 04/16/21 18:50 Urine RBC None seen /HPF (0-3) 04/16/21 18:50 Urine WBC None seen /HPF (0-5) 04/16/21 18:50 Ur Squamous Epith Cells Rare /HPF (NEGATIVE) 04/16/21 18:50 Amorphous Sediment 3+ /HPF (NEGATIVE) 04/16/21 18:50 Urine Bacteria Negative /HPF (NEGATIVE) 04/16/21 18:50 Ur Culture Indicated? No/not indicated 04/16/21 18:50 Stool Description 25g bloody hard 04/17/21 12:30 Stl Occult Blood (IFOB) Positive (NEGATIVE) A 04/17/21 12:30 SARS-CoV-2 (PCR) Negative (NEGATIVE) 04/16/21 16:14 Influenza Type A (PCR) Negative (NEGATIVE) 04/16/21 16:14 Influenza Type B (PCR) Negative (NEGATIVE) 09/23/21 16:14 RSV (PCR) Negative (NEGATIVE) 04/16/21 16:14 Tissue Pathology To follow 04/20/21 18:56 Blood Type O POSITIVE 04/23/21 22:57 Antibody Screen Negative 04/23/21 22:57 Crossmatch See Detail 04/23/21 22:57 Plan (1) Cardiac arrest: Status: Acute (2) Hypovolemic shock: Status: Acute (3) S/P partial gastrectomy: Status: Acute (4) Anemia: Status: Acute Qualifiers: Anemia type: iron deficiency Iron deficiency anemia type: chronic blood loss Qualified Code(s): D50.0 - Iron deficiency anemia secondary to blood loss (chronic) (5) Volume depletion: Status: Acute (6) Peptic ulcer disease: Status: Chronic (7) Gastritis: Status: Acute Qualifiers: Chronicity: chronic Gastritis bleeding: presence of bleeding unspecified Gastritis type: unspecified gastritis Qualified Code(s): K29.50 - Unspecified chronic gastritis without bleeding (8) Duodenal bulb ulcer: Status: Acute (9) GI bleed: Status: Acute Qualifiers: Gastritis type: chronic gastritis GI bleed type/associated pathology: gastritis Qualified Code(s): K29.51 - Unspecified chronic gastritis with bleeding
[2021-04-24] MEDS ORDERED: DIPRIVAN PREMIX 1 GRAM IV 1,000 MG/100 ML VIAL IV PRN (12:05)
[2021-04-24] MEDS ORDERED: DIPRIVAN PREMIX 1 GRAM IV 1,000 MG/100 ML VIAL ONE (12:08)
[2021-04-24 12:12] LABS: HEMATOCRIT 23.3 % (42.0-54.0); HEMOGLOBIN 8.1 g/dL (13.5-18.0)
[2021-04-24 12:14] LABS: ABG BASE EXCESS -10.1 mmol/L (-2.0-2.0)
--- NOTE | 2021-04-24 12:43 | RAD ---
HISTORYCHECK ET TUBE PLACEMENT Relevant Clinical InformationSTUDYCHEST, 1 VIEWCOMPARISONChest x-ray dated same day at 7:45 a.m.FINDINGSThe lung apices are off the field of view. Interval placement of an endotracheal tube whose tip is approximately 4.8 cm from the krys. Stable appearance of a right IJ line whose tip is within the right ventricle. The cardiac silhouette is unremarkable. Lung aeration appears unchanged. No significant pleural effusion or pneumothorax. The bony thorax is unremarkable.IMPRESSIONOne. Endotracheal tube whose tip appears to be in good position.Two. Right IJ central venous catheter whose tip should be pulled back approximately 2-3 cm.Three. No significant change in lung aeration.Electronically signed by: MARCIN MARIA (Apr 24, 2021 12:41:41)
--- NOTE | 2021-04-24 13:05 | W.DIS.FURT ---
Summary of Discharge Admission Diagnosis Patient Problems (Updated 04/24/21 @ 12:52 by Keke Lund) Anemia (Acute) D64.9 Syncope (Acute) R55 Volume depletion (Acute) E86.9 Peptic ulcer disease (Chronic) K27.9 Vital Signs: Vital Signs (72 hours) 04/21/21 14:00 04/21/21 15:00 04/21/21 15:35 Temperature Pulse Rate [Apical] 100 H 102 H Respiratory Rate 20 20 20 Blood Pressure Blood Pressure [Right Arm] 113/77 121/89 O2 Sat by Pulse Oximetry 100 100 04/21/21 16:00 04/21/21 16:05 04/21/21 17:00 Temperature 97.8 F Pulse Rate [Apical] 104 H 107 H Respiratory Rate 20 20 20 Blood Pressure Blood Pressure [Right Arm] 132/99 131/91 O2 Sat by Pulse Oximetry 100 100 04/21/21 18:00 04/21/21 19:00 04/21/21 20:00 Temperature 97.8 F 97.7 F Pulse Rate [Apical] 101 H 98 H 108 H Respiratory Rate 20 20 20 Blood Pressure Blood Pressure [Right Arm] 122/88 122/88 142/95 O2 Sat by Pulse Oximetry 92 L 100 100 04/21/21 21:00 04/21/21 21:07 04/21/21 21:37 Temperature Pulse Rate [Apical] 107 H Respiratory Rate 18 20 21 Blood Pressure Blood Pressure [Right Arm] 132/96 O2 Sat by Pulse Oximetry 100 04/21/21 22:24 04/21/21 23:00 04/22/21 00:00 Temperature Pulse Rate [Apical] 107 H 97 H 97 H Respiratory Rate 20 18 18 Blood Pressure Blood Pressure [Right Arm] 136/84 137/97 154/95 O2 Sat by Pulse Oximetry 100 100 100 04/22/21 01:00 04/22/21 02:00 04/22/21 03:00 Temperature Pulse Rate [Apical] 91 H 94 H 95 H Respiratory Rate 18 18 20 Blood Pressure Blood Pressure [Right Arm] 147/94 120/79 131/93 O2 Sat by Pulse Oximetry 100 100 92 L 04/22/21 04:00 04/22/21 04:34 04/22/21 05:03 Temperature 98.3 F Pulse Rate [Apical] 108 H Respiratory Rate 21 22 22 Blood Pressure Blood Pressure [Right Arm] 126/77 O2 Sat by Pulse Oximetry 100 04/22/21 05:22 04/22/21 06:03 04/22/21 07:17 Temperature 98.4 F Pulse Rate [Apical] 120 H 120 H 109 H Respiratory Rate 20 22 20 Blood Pressure Blood Pressure [Right Arm] 132/88 141/96 145/105 O2 Sat by Pulse Oximetry 100 100 100 04/22/21 08:00 04/22/21 10:38 04/22/21 11:08 Temperature 98.2 F Pulse Rate [Apical] 117 H Respiratory Rate 20 20 20 Blood Pressure Blood Pressure [Right Arm] 158/97 O2 Sat by Pulse Oximetry 100 04/22/21 12:00 04/22/21 14:39 04/22/21 15:09 Temperature 98.7 F Pulse Rate [Apical] 119 H Respiratory Rate 20 20 20 Blood Pressure Blood Pressure [Right Arm] 151/91 O2 Sat by Pulse Oximetry 98 04/22/21 16:00 04/22/21 18:19 04/22/21 18:49 Temperature 97.5 F L Pulse Rate [Apical] 100 H Respiratory Rate 20 20 20 Blood Pressure Blood Pressure [Right Arm] 139/84 O2 Sat by Pulse Oximetry 100 04/22/21 20:00 04/22/21 20:39 04/22/21 21:00 Temperature 98.6 F Pulse Rate [Apical] 119 H Respiratory Rate 21 20 Blood Pressure 126/79 Blood Pressure [Right Arm] 134/93 O2 Sat by Pulse Oximetry 100 04/22/21 21:30 04/23/21 00:00 04/23/21 01:08 Temperature 98.0 F Pulse Rate [Apical] 111 H 104 H Respiratory Rate 20 20 18 Blood Pressure Blood Pressure [Right Arm] 118/79 117/79 O2 Sat by Pulse Oximetry 99 97 04/23/21 01:51 04/23/21 02:02 04/23/21 02:21 Temperature Pulse Rate [Apical] 112 H Respiratory Rate 20 18 21 Blood Pressure Blood Pressure [Right Arm] 112/76 O2 Sat by Pulse Oximetry 100 04/23/21 03:00 04/23/21 04:00 04/23/21 05:10 Temperature 97.5 F L Pulse Rate [Apical] 113 H 108 H 105 H Respiratory Rate 18 18 17 Blood Pressure Blood Pressure [Right Arm] 127/86 124/74 134/94 O2 Sat by Pulse Oximetry 100 100 98 04/23/21 05:44 04/23/21 06:11 04/23/21 06:14 Temperature Pulse Rate [Apical] 114 H Respiratory Rate 20 18 18 Blood Pressure Blood Pressure [Right Arm] 132/80 O2 Sat by Pulse Oximetry 95 04/23/21 08:00 04/23/21 09:21 04/23/21 09:51 Temperature 98.5 F Pulse Rate [Apical] 105 H Respiratory Rate 20 18 18 Blood Pressure Blood Pressure [Right Arm] 116/71 O2 Sat by Pulse Oximetry 100 04/23/21 12:00 04/23/21 13:41 04/23/21 14:11 Temperature 98.7 F Pulse Rate [Apical] 107 H Respiratory Rate 20 20 20 Blood Pressure Blood Pressure [Right Arm] 142/92 O2 Sat by Pulse Oximetry 100 04/23/21 16:00 04/23/21 20:00 04/23/21 20:50 Temperature 98.6 F 98.1 F Pulse Rate [Apical] 104 H 131 H Respiratory Rate 20 18 18 Blood Pressure Blood Pressure [Right Arm] 138/96 122/88 O2 Sat by Pulse Oximetry 100 100 04/23/21 21:20 04/24/21 00:00 04/24/21 00:05 Temperature 98.5 F Pulse Rate [Apical] 112 H Respiratory Rate 18 18 18 Blood Pressure Blood Pressure [Right Arm] 137/92 O2 Sat by Pulse Oximetry 100 04/24/21 00:35 04/24/21 03:05 04/24/21 03:35 Temperature Pulse Rate [Apical] Respiratory Rate 18 18 18 Blood Pressure Blood Pressure [Right Arm] O2 Sat by Pulse Oximetry 04/24/21 04:00 04/24/21 06:05 04/24/21 06:35 Temperature 98.4 F Pulse Rate [Apical] 94 H Respiratory Rate 19 18 18 Blood Pressure Blood Pressure [Right Arm] 133/88 O2 Sat by Pulse Oximetry 95 04/24/21 07:38 Temperature Pulse Rate [Apical] Respiratory Rate 20 Blood Pressure Blood Pressure [Right Arm] O2 Sat by Pulse Oximetry Labs: Laboratory Last Values WBC 3.3 X10^3/uL (3.6-10.0) L 04/24/21 08:14 RBC 2.25 X10^6/uL (4.7-6.0) L 04/24/21 08:14 Hgb 8.1 g/dL (13.5-18.0) L 04/24/21 11:51 Hct 23.3 % (42.0-54.0) L 04/24/21 11:51 MCV 87.4 fL (80.0-100.0) 04/24/21 08:14 MCH 29.9 pg (27.0-34.0) 04/24/21 08:14 MCHC 34.2 g/dL (33.0-35.0) 04/24/21 08:14 RDW 14.2 % (11.6-16.5) 04/24/21 08:14 Plt Count 55 X10^3/uL (150.0-450.0) L 04/24/21 08:14 Plt Count Comment Adequate (ADEQUATE) 04/21/21 05:12 MPV 7.9 fL (7.4-11.0) 04/24/21 08:14 Neut % (Auto) 71.2 % (42.0-75.0) 04/24/21 08:14 Lymph % (Auto) 25.4 % (21.0-51.0) 04/24/21 08:14 [place] % (Auto) 2.3 % (0.0-13.0) 04/24/21 08:14 Eos % (Auto) 0.8 % (0.9-2.9) L 04/24/21 08:14 Baso % (Auto) 0.3 % (0.2-1.0) 04/24/21 08:14 Neut # (Auto) 2.3 x10^3/uL (2.2-4.8) 04/24/21 08:14 Lymph # (Auto) 0.8 X10^3/uL (1.3-2.9) L 04/24/21 08:14 [place] # (Auto) 0.1 x10^3/uL (0.3-0.8) L 04/24/21 08:14 Eos # (Auto) 0.0 x10^3/uL (0.0-0.2) 04/24/21 08:14 Baso # (Auto) 0.0 X10^3/uL (0.0-0.1) 04/24/21 08:14 Absolute Nucleated RBC 0.2 /100WBC 04/24/21 08:14 Total Counted 100 04/21/21 05:12 Neutrophils % (Manual) 90 % (39-76) H 04/21/21 05:12 Band Neutrophils % 4 % (0-10) 04/21/21 05:12 Lymphocytes % (Manual) 5 % (13-43) L 04/21/21 05:12 Monocytes % (Manual) 1 % (4-9) L 04/21/21 05:12 Plt Morphology Comment Normal (NORMAL) 04/21/21 05:12 RBC Morphology Normal (NORMAL) 04/21/21 05:12 PT 18.5 SECONDS (11.8-14.3) 04/24/21 08:14 INR Target Range - 04/24/21 08:14 INR 1.62 (0.8-1.3) H 04/24/21 08:14 APTT 41.2 SECONDS (22.9-36.5) H 04/24/21 08:14 PTT Comment - 04/24/21 08:14 Sample Site Femoral 04/24/21 12:08 ABG pH 7.370 (7.35-7.45) 04/24/21 12:08 ABG pCO2 23.0 mmHg (35.0-45.0) L 04/24/21 12:08 ABG pO2 219.0 mmHg (80.0-100.0) H 04/24/21 12:08 ABG HCO3 13.3 mmol/L (22-26) L* 04/24/21 12:08 ABG O2 Saturation 100.0 % (90-100) 04/24/21 12:08 ABG Base Excess -10.1 mmol/L (-2.0-2.0) L 04/24/21 12:08 Andi Test Na 04/24/21 12:08 A-a Gradient 465.0 mmHg 04/24/21 12:08 FiO2 100.0 04/24/21 12:08 Blood Gas Comments Luis well 04/24/21 12:08 Sodium 126 mmol/L (136-145) L 04/24/21 08:14 Corrected Sodium 133 mmol/L (136-145) L 04/24/21 08:14 Potassium 4.0 mmol/L (3.5-5.1) 04/24/21 08:14 Chloride 95 mmol/L (98-107) L 04/24/21 08:14 Carbon Dioxide 21.7 mmol/L (21-32) 04/24/21 08:14 BUN 21 mg/dL (7-18) H 04/24/21 08:14 Creatinine 1.14 mg/dL (0.70-1.30) 04/24/21 08:14 Est GFR (MDRD) Af Amer > 60 (>60) 04/24/21 08:14 Est GFR (MDRD) Non-Af > 60 (>60) 04/24/21 08:14 Glucose 384 mg/dL (65-99) H 04/24/21 08:14 POC Glucose (mg/dL) 123 mg/dL (65-99) H 04/23/21 20:02 Lactic Acid 7.9 mmol/L (0.4-2.0) H 04/24/21 12:15 Calcium 6.0 mg/dL (8.5-10.1) L* 04/24/21 08:14 Corrected Calcium 8.3 mg/dL (8.5-10.1) L 04/24/21 08:14 Total Bilirubin 0.20 mg/dL (0.2-1.0) 04/24/21 08:14 AST 21 Units/L (15-37) 04/24/21 08:14 ALT 13 Units/L (12-78) 04/24/21 08:14 Alkaline Phosphatase 31 Units/L (46-116) L 04/24/21 08:14 Creatine Kinase 181 Units/L (39-308) 04/24/21 08:14 CK-MB (CK-2) 1.9 ng/mL (0-4.0) 04/24/21 08:14 CK/CKMB % Calc 1.1 % (<4) 04/24/21 08:14 Troponin I 0.13 ng/mL (0-1.5) 04/24/21 08:14 Total Protein 2.7 g/dL (6.4-8.2) L 04/24/21 08:14 Albumin 1.1 g/dL (3.4-5.0) L 04/24/21 08:14 Globulin 1.6 g/dL (2.5-4.5) L 04/24/21 08:14 Albumin/Globulin Ratio 0.7 Ratio (1.1-2.1) L 04/24/21 08:14 Lipase 75 Units/L (73-393) 04/16/21 16:18 Specimen Type Clean catch urine 04/16/21 18:50 Urine Color Yellow (YELLOW) 04/16/21 18:50 Urine Appearance Cloudy (CLEAR) 04/16/21 18:50 Urine pH 7.0 (5.0 - 8.0) 04/16/21 18:50 Ur Specific [place] 1.015 (1.000-1.030) 04/16/21 18:50 Urine Protein 1+ (NEGATIVE) 04/16/21 18:50 Urine Glucose (UA) Negative (NEGATIVE) 04/16/21 18:50 Urine Ketones Negative (NEGATIVE) 04/16/21 18:50 Urine Occult Blood Negative (NEGATIVE) 04/16/21 18:50 Urine Nitrite Negative (NEGATIVE) 04/16/21 18:50 Urine Bilirubin Negative (NEGATIVE) 04/16/21 18:50 Urine Urobilinogen Normal (NORMAL) 04/16/21 18:50 Ur Leukocyte Esterase Negative (NEGATIVE) 04/16/21 18:50 Urine RBC None seen /HPF (0-3) 04/16/21 18:50 Urine WBC None seen /HPF (0-5) 04/16/21 18:50 Ur Squamous Epith Cells Rare /HPF (NEGATIVE) 04/16/21 18:50 Amorphous Sediment 3+ /HPF (NEGATIVE) 04/16/21 18:50 Urine Bacteria Negative /HPF (NEGATIVE) 04/16/21 18:50 Ur Culture Indicated? No/not indicated 04/16/21 18:50 Stool Description 25g bloody hard 04/17/21 12:30 Stl Occult Blood (IFOB) Positive (NEGATIVE) A 04/17/21 12:30 SARS-CoV-2 (PCR) Negative (NEGATIVE) 04/16/21 16:14 Influenza Type A (PCR) Negative (NEGATIVE) 04/16/21 16:14 Influenza Type B (PCR) Negative (NEGATIVE) 04/16/21 16:14 RSV (PCR) Negative (NEGATIVE) 04/16/21 16:14 Tissue Pathology To follow 04/20/21 18:56 Blood Type O POSITIVE 04/23/21 22:57 Antibody Screen Negative 04/23/21 22:57 Crossmatch See Detail 04/23/21 22:57 Reason For Visit: ANEMIA, SYNCOPE, VOLUME DEPLETION, PUD Discharge Diagnosis All Active Problems (Updated 04/24/21 @ 12:52 by Keke Lund) Hypovolemic shock (Acute) Cardiac arrest (Acute) GI bleed (Acute) S/P partial gastrectomy (Acute) Duodenal bulb ulcer (Acute) Gastritis (Acute) Esophagitis (Acute) Anemia (Acute) Dehydration (Acute) Fall (Acute) Syncope (Acute) Volume depletion (Acute) Peptic ulcer disease (Chronic) Plan of Treatment: Continue with present treatment and follow up plan. Pt is to keep follow up appointment as instructed and take medications as ordered. Discharge Medications Discharge Medications: No Known Drug Allergies Allergy (Verified 11/20/20 11:47) CONTINUE taking the following medications lidocaine HCl [Lidocaine Viscous] 7.5 ml PO TID 04/16/21 [History] metoclopramide HCl 10 mg PO AC 04/16/21 [History] pantoprazole 40 mg PO DAILY 04/16/21 [History] sucralfate 10 ml PO QID 04/16/21 [History] Discharge Plan Discharge Plan Condition: Stable Health Concerns: Post Hospitalization: new medications and changes needed to prevent readmission or further decline. Pt educated and given instructions on all concerns. Care Plan Goals: Problem: Fluid Volume Deficit Goal: Maintain/Improved Adequate hydration. Instructions: Follow provided instructions. Follow up with primary physician as directed. Contact primary care physician or report to the closest Emergency Room if condition worsens. Plan of Treatment: Continue with present treatment and follow up plan. Pt is to keep follow up appointment as instructed and take medications as ordered. Prescriptions: No Action sucralfate 100 mg/mL suspension 10 ml PO QID RF: 0 pantoprazole 40 mg tablet,delayed release (DR/EC) 40 mg PO DAILY RF: 0 lidocaine HCl [Lidocaine Viscous] 2 % solution 7.5 ml PO TID RF: 0 metoclopramide HCl 10 mg tablet 10 mg PO AC RF: 0 Follow ups/Referrals Follow ups/Referrals: ANDI SILVA [Primary Care Provider] - 1 WEEK Instructions Stand Alone Forms: Excuse From Work or School, Precautions for COVID19, [facility], Patient Portal, Social Distancing
[2021-04-27 15:29] LABS: ABG HCO3 13.3 mmol/L (22-26)
== END 2021-04-24 13:05 | disposition critical access hospital (66) | DRG 326 ==
LOC: MED/SURG 16:05 → ER 16:05 → MED/SURG 20:30
PROVIDERS: ADMIT Family Medicine; ATTEND Family Medicine
PROC: GASTERC (ICD-10-PCS; 2021-04-20 15:40)
DX: Z20.822 Contact with and (suspected) exposure to COVID-19; K29.50 Unspecified chronic gastritis without bleeding; K26.4 Chronic or unspecified duodenal ulcer with hemorrhage; E86.9 Volume depletion, unspecified; K20.90 Esophagitis, unspecified without bleeding; D50.0 Iron deficiency anemia secondary to blood loss (chronic); R55 Syncope and collapse; I46.8 Cardiac arrest due to other underlying condition; E86.0 Dehydration; R57.1 Hypovolemic shock